=== PATIENT | female | born 1985 | race Caucasian/White ===

== ENCOUNTER 2018-11-22 20:45 | Emergency (ER) | payer SELFPAY ==
--- OUTSIDE RECORDS SUMMARY | 2018-11-22 20:48 | XMS REPORT ---
:1985 [facility] [address] [place] [id number] Care Team Providers Name Role Phone Unavailable Unavailable Unavailable Problems This patient has no known problems. Allergies, Adverse Reactions, Alerts This patient has no known allergies or adverse reactions. Medications This patient has no known medications.
[2018-11-22] MEDS ORDERED: NA CHLORIDE 0.9% 1,000 ML ONE (22:54)
[2018-11-22] MEDS ORDERED: ONDANSETRON 4 MG/2 ML VIAL ONE (22:54)
[2018-11-22] MEDS ORDERED: MORPHINE 4 MG/ML SYR ONE (22:54)
[2018-11-22 23:21] LABS: Absolute Lymphocytes (CBC) 2.2 K/uL (0.7-4.9); Absolute Monocytes 0.4 K/uL (0.1-1.3); Absolute Neutrophil 2.5 K/uL (1.8-8.0); Basophils % 0.9 % (0-1.3); Eosinophils % 3.8 % (0-4.4); Hematocrit 33.5 % (36.0-45.0); Lymphocytes % 40.4 % (15.3-44.8); MPV 9.8 fL (7.6-11.3); Monocytes % 7.2 % (3.3-12.3); RBC Red Blood Cell Count 3.83 M/uL (3.86-4.86)
[2018-11-22 23:35] LABS: Urine Blood NEGATIVE (NEG); Urine Glucose NEGATIVE (NEG); Urine Protein 2+ (NEG); Urine Specific Gravity 1.015 (1.005-1.030); Urine pH >8.5 (5.0-7.0)
[2018-11-22 23:41] LABS: ALT/SGPT 15 U/L (12-78); AST/SGOT 13 U/L (15-37); Albumin 3.4 g/dL (3.4-5.0); Alkaline Phosphatase 57 U/L (45-117); BUN Blood Urea Nitrogen 8 mg/dL (7-18); Bicarbonate 28 mmol/L (21-32); Bilirubin Direct < 0.1 mg/dL (0-0.2); Bilirubin Total 0.1 mg/dL (0.2-1.0); Glucose Level 85 mg/dL (74-106); Lipase 127 U/L (73-393); Potassium 3.2 mmol/L (3.5-5.1); Protein, Total 6.7 g/dL (6.4-8.2); Sodium Level 144 mmol/L (136-145)
[2018-11-23 00:38] LABS: Urine Culture Reflex Order NOT NEEDED
[2018-11-23 00:39] LABS: Urine Bacteria LOADED /HPF (<20); Urine RBC NONE SEEN /HPF (NONE SEEN)
--- NOTE | 2018-11-23 01:35 | EDPHYS ---
Physician Documentation [facility] Name: Mikayla Torrez Age: 33 yrs Sex: Female : 1985 Arrival Date: 11/22/2018 Time: 20:48 Bed 30 Private MD: ED Physician Too Barrett HPI: 11/22 22:24 This 33 yrs old Female presents to ER via Wheelchair with complaints of High pkl Blood Sugar. 22:24 The patient presents with abdominal pain in the lower abdomen. Onset: The pkl symptoms/episode began/occurred today. The symptoms do not radiate. Associated signs and symptoms: none. 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 - Social history:: Smoking status: Patient uses tobacco products, smokes one pack cigarettes per day. - Ebola Screening: : No symptoms or risks identified at this time. ROS: 22:24 Eyes: Negative for injury, pain, redness, and discharge, ENT: Negative for injury, pkl pain, and discharge, Neck: Negative for injury, pain, and swelling, Cardiovascular: Negative for chest pain, palpitations, and edema, Respiratory: Negative for shortness of breath, cough, wheezing, and pleuritic chest pain. 22:24 Abdomen/GI: Positive for abdominal pain, of the right lower quadrant and left lower quadrant. 22:24 Back: Negative for acute changes. 22:24 : Negative for urinary symptoms. 22:24 MS/extremity: Negative for acute changes. 22:24 Skin: Negative for rash. 22:24 Neuro: Negative for altered mental status. Exam: 22:24 Head/Face: Normocephalic, atraumatic. Eyes: Pupils equal round and reactive to light, pkl extra-ocular motions intact. Lids and lashes normal. Conjunctiva and sclera are non-icteric and not injected. Cornea within normal limits. Periorbital areas with no swelling, redness, or edema. ENT: Nares patent. No nasal discharge, no septal abnormalities noted. Tympanic membranes are normal and external auditory canals are clear. Oropharynx with no redness, swelling, or masses, exudates, or evidence of obstruction, uvula midline. Mucous membranes moist. Neck: Trachea midline, no thyromegaly or masses palpated, and no cervical lymphadenopathy. Supple, full range of motion without nuchal rigidity, or vertebral point tenderness. No Meningismus. Chest/axilla: Normal chest wall appearance and motion. Nontender with no deformity. No lesions are appreciated. Cardiovascular: Regular rate and rhythm with a normal S1 and S2. No gallops, murmurs, or rubs. Normal PMI, no JVD. No pulse deficits. Respiratory: Lungs have equal breath sounds bilaterally, clear to auscultation and percussion. No rales, rhonchi or wheezes noted. No increased work of breathing, no retractions or nasal flaring. 22:24 Abdomen/GI: Bowel sounds: normal, Palpation: soft, mild abdominal tenderness, in the right lower quadrant and left lower quadrant. 22:24 Back: Exam negative for acute changes. 22:24 : Exam negative for acute changes. 22:24 Musculoskeletal/extremity: Exam is negative for acute changes. 22:24 Skin: Exam negative for rash. 22:24 Neuro: Orientation: is normal, Mentation: is normal, Cranial nerves: grossly normal, Motor: is normal. Vital Signs: 21:08 BP 117 / 77; Pulse 90; Resp 18; Temp 99.1(O); Pulse Ox 99% on R/A; Weight 83.91 kg; lp1 Height 5 ft. 3 in. (160.02 cm); Pain 10/10; 22:00 BP 110 / 75; Pulse 78; Resp 17 S; Pulse Ox 97% on R/A; ca1 23:02 BP 105 / 64; Pulse 75; Resp 17 S; Pulse Ox 97% on R/A; ca1 04/16 00:15 BP 109 / 61; Pulse 74; Resp 19 S; Pulse Ox 98% on R/A; ca1 00:43 BP 106 / 63; Pulse 73; Resp 18 S; Pulse Ox 96% on R/A; ca1 01:00 BP 91 / 60 LA Supine; Pulse 74; Resp 15 S; Pulse Ox 99% on R/A; rv 01:27 BP 93 / 65 LA Supine; Pulse 78; Resp 17 S; Pulse Ox 100% on R/A; rv 11/22 21:08 Body Mass Index 32.77 (83.91 kg, 160.02 cm) lp1 MDM: 11/22 22:17 Patient medically screened. pkl 11/23 01:30 Data reviewed: vital signs, nurses notes, lab test result(s), radiologic studies, CT pkl scan. 11/22 22:23 Order name: Basic Metabolic Panel; Complete Time: : pkl 11/22 22:23 Order name: CBC with Diff; Complete Time: : pkl 11/22 22:23 Order name: Creatinine for Radiology; Complete Time: : pkl 11/22 22:23 Order name: Hepatic Function; Complete Time: : pkl 11/22 22:23 Order name: Lipase; Complete Time: : pkl 11/22 22:31 Order name: Urine Dipstick--Ancillary (enter results); Complete Time: 01: ms 11/22 22:23 Order name: CT Abd/Pelvis - W/Contrast pkl 11/22 22:31 Order name: Urine --Ancillary (enter results); Complete Time: 01: ms 11/22 22:46 Order name: Urine Microscopic Only; Complete Time: : ms 11/22 22:46 Order name: Urine Culture ms 11/22 22:23 Order name: IV Saline Lock; Complete Time: 22:46 pkl 11/22 22:23 Order name: Labs collected and sent; Complete Time: 22:46 pkl Administered Medications: 11/22 22:40 Drug: NS 0.9% 1000 ml Route: IV; Rate: 125 ml/hr; Site: right antecubital; ca1 11/23 01:49 Follow up: IV Status: Completed infusion rv 11/22 22:40 Drug: morphine 4 mg Route: IVP; Site: right antecubital; ca1 23:31 Follow up: Response: No adverse reaction; Pain is unchanged, physician notified ca1 22:45 Drug: Zofran 4 mg Route: IVP; Site: right antecubital; ca1 23:31 Follow up: Response: No adverse reaction; Nausea is decreased ca1 11/23 01:49 Drug: Cipro 500 mg Route: PO; rv 01:49 Follow up: Response: Medication administered at discharge. rv 01:49 Drug: K-Dur 40 mEq Route: PO; rv 01:49 Follow up: Response: Medication administered at discharge. Point of Care Testing: Blood Glucose: 11/22 20:49 Blood Glucose: 84 mg/dL; lp1 Ranges: Critical Glucose Levels:Adult <50 mg/dl or >400 mg/dl <40 mg/dl or >180 mg/dl Disposition: 11/23/18 01:34 Discharged to Home. Impression: Abdominal pain. Urinary tract infection. - Condition is Stable. - Prescriptions for Ultram 50 mg Oral Tablet - take 1 tablet by ORAL route every 8 hours As needed; 20 tablet. Cipro 500 mg Oral Tablet - take 1 tablet by ORAL route every 12 hours for 7 days; 14 tablet. - Medication Reconciliation Form, Thank You Letter, Antibiotic Education, Prescription Opioid Use form. - Follow up: Private Physician; When: 2 - 3 days; Reason: Re-evaluation by your physician. - Problem is new. - Symptoms have improved. Signatures: Dispatcher [employer] EDMS Too Barrett MD MD pkl Kate Kaye RN RN lp1 Jasbir Javier, RN RN rv Acob, Alma, RN RN ca1 Corrections: (The following items were deleted from the chart) 11/23 01:50 01:34 11/23/2018 01:34 Discharged to Home. Impression: Abdominal pain. Urinary tract rv infection. Condition is Stable. Forms are Medication Reconciliation Form, Thank You Letter, Antibiotic Education, Prescription Opioid Use. Follow up: Private Physician; When: 2 - 3 days; Reason: Re-evaluation by your physician. Problem is new. Symptoms have improved. pkl
--- NOTE | 2018-11-23 01:35 | ER ---
[facility] Name: Mikayla Torrez Age: 33 yrs Sex: Female : 1985 Arrival Date: 11/22/2018 Time: 20:48 Bed 30 Private MD: Diagnosis: Abdominal pain. Urinary tract infection Presentation: 11/22 21:06 Presenting complaint: Patient states: "I'm having a lot of abdominal pain"; Complaint lp1 of shaking, felt like blood sugar was low; Denies any pain with urination, vomiting, diarrhea, fever. Transition of care: patient was not received from another setting of care. Onset of symptoms was November 22, 2018. Risk Assessment: Do you want to hurt yourself or someone else? Patient reports no desire to harm self or others. Initial Sepsis Screen: Does the patient meet any 2 criteria? No. Patient's initial sepsis screen is negative. Does the patient have a suspected source of infection? No. Patient's initial sepsis screen is negative. Care prior to arrival: None. 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 - Social history:: Smoking status: Patient uses tobacco products, smokes one pack cigarettes per day. - Ebola Screening: : No symptoms or risks identified at this time. Screenin:09 Abuse screen: Denies threats or abuse. Denies injuries from another. Nutritional lp1 screening: No deficits noted. Tuberculosis screening: No symptoms or risk factors identified. 22:00 Fall Risk None identified. ca1 Assessment: 22:00 General: Appears in no apparent distress. comfortable, Behavior is calm, cooperative, ca1 appropriate for age. Pain: Complains of pain in abdomen Pain currently is 10 out of 10 on a pain scale. Pain began 1 hour ago. Neuro: Level of Consciousness is awake, alert, obeys commands, Oriented to person, place, time, situation. Cardiovascular: Heart tones S1 S2 present Capillary refill < 3 seconds Patient's skin is warm and dry. Respiratory: Airway is patent Respiratory effort is even, unlabored, Respiratory pattern is regular, symmetrical, Breath sounds are clear bilaterally. GI: Abdomen is flat, non-distended, Bowel sounds present X 4 quads. Abd is soft X 4 quads Abdomen is tender to palpation in right lower quadrant and left lower quadrant. : No deficits noted. No signs and/or symptoms were reported regarding the genitourinary system. EENT: No deficits noted. No signs and/or symptoms were reported regarding the EENT system. Derm: Skin is intact, is healthy with good turgor, Skin is pink, warm \\T\\ dry. Musculoskeletal: Circulation, motion, and sensation intact. Capillary refill < 3 seconds. 23:02 Reassessment: Patient appears in no apparent distress at this time. Patient and/or ca1 family updated on plan of care and expected duration. Pain level reassessed. Patient is alert, oriented x 3, equal unlabored respirations, skin warm/dry/pink. 11/23 00:15 Reassessment: Patient appears in no apparent distress at this time. Patient and/or ca1 family updated on plan of care and expected duration. Pain level reassessed. Patient is alert, oriented x 3, equal unlabored respirations, skin warm/dry/pink. 00:15 Reassessment: Pt to CT scan. ca1 00:43 Reassessment: Patient appears in no apparent distress at this time. Patient is alert, ca1 oriented x 3, equal unlabored respirations, skin warm/dry/pink. PT back from CT scan. 01:28 Reassessment: Patient appears in no apparent distress at this time. Patient and/or rv family updated on plan of care and expected duration. Pain level reassessed. Patient is alert, oriented x 3, equal unlabored respirations, skin warm/dry/pink. patient is still complaining of abdominal pain. Vital Signs: 11/22 21:08 BP 117 / 77; Pulse 90; Resp 18; Temp 99.1(O); Pulse Ox 99% on R/A; Weight 83.91 kg; lp1 Height 5 ft. 3 in. (160.02 cm); Pain 10/10; 22:00 BP 110 / 75; Pulse 78; Resp 17 S; Pulse Ox 97% on R/A; ca1 23:02 BP 105 / 64; Pulse 75; Resp 17 S; Pulse Ox 97% on R/A; ca1 11/23 00:15 BP 109 / 61; Pulse 74; Resp 19 S; Pulse Ox 98% on R/A; ca1 00:43 BP 106 / 63; Pulse 73; Resp 18 S; Pulse Ox 96% on R/A; ca1 01:00 BP 91 / 60 LA Supine; Pulse 74; Resp 15 S; Pulse Ox 99% on R/A; rv 01:27 BP 93 / 65 LA Supine; Pulse 78; Resp 17 S; Pulse Ox 100% on R/A; rv 04 21:08 Body Mass Index 32.77 (83.91 kg, 160.02 cm) lp1 ED Course: 11/22 20:48 Patient arrived in ED. ds1 21:08 Triage completed. lp1 21:08 Arm band placed on right wrist. lp1 22:00 Patient has correct armband on for positive identification. Placed in gown. Bed in low ca1 position. Call light in reach. Side rails up X 1. Pulse ox on. NIBP on. Warm blanket given. 22:01 Alma Kirkland, RN is Primary Nurse. ca1 22:17 Too Barrett MD is Attending Physician. pkl 22:46 Initial lab(s) drawn, by me, sent to lab. Inserted saline lock: 22 gauge in right lt1 antecubital area, using aseptic technique. 22:59 Radiology exam delayed due to lab results not completed at this time. (BUN/Creatinine). vm2 11/23 00:46 CT Abd/Pelvis - W/Contrast In Process Unspecified. EDMS 01:29 No provider procedures requiring assistance completed. IV discontinued, intact, rv bleeding controlled, No redness/swelling at site. Pressure dressing applied. Administered Medications: 11/22 22:40 Drug: NS 0.9% 1000 ml Route: IV; Rate: 125 ml/hr; Site: right antecubital; ca1 11/23 01:49 Follow up: IV Status: Completed infusion rv 11/22 22:40 Drug: morphine 4 mg Route: IVP; Site: right antecubital; ca1 23:31 Follow up: Response: No adverse reaction; Pain is unchanged, physician notified ca1 22:45 Drug: Zofran 4 mg Route: IVP; Site: right antecubital; ca1 23:31 Follow up: Response: No adverse reaction; Nausea is decreased ca1 11/23 01:49 Drug: Cipro 500 mg Route: PO; rv 01:49 Follow up: Response: Medication administered at discharge. rv 01:49 Drug: K-Dur 40 mEq Route: PO; rv 01:49 Follow up: Response: Medication administered at discharge. rv Point of Care Testing: Blood Glucose: 11/22 20:49 Blood Glucose: 84 mg/dL; lp1 Ranges: Outcome: 11/23 01:29 Condition: good rv 01:34 Discharge ordered by . pkl 01:49 Discharged to home ambulatory. rv 01:49 Discharge instructions given to patient, family, Instructed on discharge instructions, follow up and referral plans. medication usage, Demonstrated understanding of instructions, follow-up care, medications, Prescriptions given X 2. 01:50 Patient left the ED. rv Signatures: Dispatcher [employer] EDMS Too Barrett MD MD pkNatasha Sotomayor ds1 Kate Kaye RN RN lp1 Brandie Flores 2 Jasbir Javier RN RN rv Alma Kirkland RN RN Janae Wilkerson [facility]
[2018-11-23] MEDS ORDERED: CIPROFLOXACIN HCL 500 MG TAB ONE (01:49)
[2018-11-23] MEDS ORDERED: POTASSIUM CL SA 10 MEQ TAB PO ONE (01:49)
--- NOTE | 2018-11-23 11:13 | RAD REPORT ---
EXAM DESCRIPTION: CT - Abdomen Pelvis W Contrast - 11/23/2018 1:08 am CLINICAL HISTORY: The patient is 33 years old and is Female; ABD PAIN TECHNIQUE: Axial computed tomography images of the abdomen and pelvis with intravenous contrast. S agittal and coronal reformatted images were created and reviewed. This CT exam was performed using one or more of the following dose reduction techniques: automated exposure control, adjustment of t he mA and/or kV according to patient size, and/or use of iterative reconstruction technique. COMPARISON: None. FINDINGS: LUNG BASES: Bibasilar atelectasis. No focal consolidation, pleural effusion or pneumoth orax. ABDOMEN: LIVER: Unremarkable. No mass. GALLBLADDER AND BILE DUCTS: Unremarkable. No calcified stones. No ductal dilation. PANCREAS: Unremarkable. No mass. No ductal dilation. SPLEEN: Unremarkable. No splenomegaly. ADRENALS: Unremarkable. No mass. KIDNEYS AND URETERS: Prominence of the renal collecting systems bilaterally, left greater than rig ht. No hydronephrosis or hydroureter. STOMACH AND BOWEL: Unremarkable. No obstruction. No mucosal thickening. PELVIS: APPENDIX: No findings to suggest acute appendicitis. BLADDER: Unremarkable. No mass. REPRODUCTIVE: Heterogenous enlargement of the uterus with small amount of endometrial fluid and mu ltiple rim-enhancing right ovarian cyst measuring 1.6 cm suggestive of a corpus luteal cyst. ABDOMEN and PELVIS: INTRAPERITONEAL SPACE: Small amount of free pelvic fluid. No free air. BONES/JOINTS: No acute fracture. No dislocation. SOFT TISSUES: Fat-containing umbilical hernia. VASCULATURE: Unremarkable. No abdominal aortic aneurysm. LYMPH NODES: Unremarkable. No enlarged lymph nodes. IMPRESSION: 1. No acute abdominal abnormality. 2. Heterogenous enlargement of the uterus with small amount of endometrial fluid in multiple 1.6 cm corpus luteal cysts on the right. No follow-up imaging is recommended. Reference: US recommendations based on Radiology 2010 Sep;256(3):943-54; CT/MR recommendations based on J Am Christopher Radiol 2013;10:675-681. 3. Prominence of the bilateral renal collecting systems without hydroureter or radiopaque stone. 4. Bibasilar atelectasis. Electronically signed by: Gilbert Radford DO 11/23/2018 1:00 AM CDT Due to temporary technical issues with the PACS/Fluency reporting system, reports are being signed by the in house radiologist as a courtesy to ensure prompt reporting. The interpreting radiologist is f ully responsible for the content of the report.
== END 2018-11-23 01:50 | disposition home or self-care (01) ==
LOC: ER 20:45
DX: N39.0 Urinary tract infection, site not specified (principal); F17.210 Nicotine dependence, cigarettes, uncomplicated; Z88.0 Allergy status to penicillin
CPT/HCPCS: 36415; 74177; 80048; 80076; 81003; 81015; 81025; 82962; 83690; 85025; 87086; 87088; 96361; 96374; 96375; 99284; J2405; J7030; Q9967

== ENCOUNTER 2018-12-12 23:10 | Emergency (ER) | payer SELFPAY ==
--- OUTSIDE RECORDS SUMMARY | 2018-12-12 23:13 | XMS REPORT ---
:1985 [facility] Address [address] [place] [address] [address] [place] [address] Care Team Providers Name Role Phone Unavailable Unavailable Unavailable Problems This patient has no known problems. Allergies, Adverse Reactions, Alerts This patient has no known allergies or adverse reactions. Medications This patient has no known medications.
[2018-12-13 00:12] LABS: Absolute Lymphocytes (CBC) 2.9 K/uL (0.7-4.9); Absolute Monocytes 0.6 K/uL (0.1-1.3); Absolute Neutrophil 6.7 K/uL (1.8-8.0); Basophils % 1.1 % (0-1.3); Eosinophils % 2.2 % (0-4.4); Hematocrit 33.3 % (36.0-45.0); Lymphocytes % 27.8 % (15.3-44.8); MPV 8.6 fL (7.6-11.3); Monocytes % 5.8 % (3.3-12.3); RBC Red Blood Cell Count 3.79 M/uL (3.86-4.86)
[2018-12-13 00:19] LABS: Urine Blood NEGATIVE (NEG); Urine Glucose NEGATIVE (NEG); Urine Protein NEGATIVE (NEG); Urine Specific Gravity 1.015 (1.005-1.030); Urine pH 5.5 (5.0-7.0)
[2018-12-13 00:40] LABS: BUN Blood Urea Nitrogen 7 mg/dL (7-18); Bicarbonate 24 mmol/L (21-32); Glucose Level 91 mg/dL (74-106); Potassium 3.4 mmol/L (3.5-5.1); Sodium Level 139 mmol/L (136-145)
[2018-12-13] MEDS ORDERED: ACETAMINOPHEN 325 MG TABLET ONE (01:02)
[2018-12-13 01:21] LABS: HCG, Quantitative 15025 mIU/mL (1-3)
[2018-12-13 01:36] LABS: Urine Specific Gravity 1.015 (1.005-1.030)
[2018-12-13 01:37] LABS: Urine Bacteria <20 /HPF (<20); Urine Culture Reflex Order NOT NEEDED; Urine RBC <5 /HPF (NONE SEEN)
--- NOTE | 2018-12-13 03:02 | EDPHYS ---
Physician Documentation [facility] Name: Mikayla Torrez Age: 33 yrs Sex: Female : 1985 Arrival Date: 12/12/2018 Time: 23:13 Bed 4 Private MD: ED Physician Leon Hannon HPI: 12/13 01:57 This 33 yrs old Female presents to ER via Ambulatory with complaints of Pain pm1 With Urination, Back Pain, Blood in urine. 01:57 The patient presents with flank pain, on the right, urinary symptoms, hematuria, pm1 burning. Onset: The symptoms/episode began/occurred yesterday. Modifying factors: The symptoms are alleviated by nothing, the symptoms are aggravated by urinating. Associated signs and symptoms: Pertinent negatives: diarrhea, fever, vomiting. Severity of symptoms: in the emergency department the symptoms are unchanged. The patient is sexually active. The patient's method of control includes nothing. The patient has been recently seen at the [facility] Emergency Department, 3 weeks ago for abdominal pain and diagnosed with UTI. Symptoms resolved with antibiotics. 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 - Social history:: Smoking status: Patient uses tobacco products, denies chronic smoking, but will smoke occasionally. - Ebola Screening: : No symptoms or risks identified at this time. ROS: 12/13 01:50 Positive for flank pain, hematuria, burning with urination, Negative for vaginal pm1 bleeding, vaginal discharge. Constitutional: Negative for fever, chills, and weight loss, Eyes: Negative for injury, pain, redness, and discharge, ENT: Negative for injury, pain, and discharge, Neck: Negative for injury, pain, and swelling, Cardiovascular: Negative for chest pain, palpitations, and edema, Respiratory: Negative for shortness of breath, cough, wheezing, and pleuritic chest pain, Abdomen/GI: Negative for abdominal pain, nausea, vomiting, diarrhea, and constipation. MS/Extremity: Negative for injury and deformity, Skin: Negative for injury, rash, and discoloration, Neuro: Negative for headache, weakness, numbness, tingling, and seizure. Back: Positive for flank pain, on the right. Exam: 01:50 Constitutional: This is a well developed, well nourished patient who is awake, alert, pm1 and in no acute distress. Head/Face: Normocephalic, atraumatic. Eyes: Pupils equal round and reactive to light, extra-ocular motions intact. Lids and lashes normal. Conjunctiva and sclera are non-icteric and not injected. Cornea within normal limits. Periorbital areas with no swelling, redness, or edema. ENT: Nares patent. No nasal discharge, no septal abnormalities noted. Tympanic membranes are normal and external auditory canals are clear. Oropharynx with no redness, swelling, or masses, exudates, or evidence of obstruction, uvula midline. Mucous membranes moist. Neck: Trachea midline, no thyromegaly or masses palpated, and no cervical lymphadenopathy. Supple, full range of motion without nuchal rigidity, or vertebral point tenderness. No Meningismus. Chest/axilla: Normal chest wall appearance and motion. Nontender with no deformity. No lesions are appreciated. Cardiovascular: Regular rate and rhythm with a normal S1 and S2. No gallops, murmurs, or rubs. Normal PMI, no JVD. No pulse deficits. Respiratory: Lungs have equal breath sounds bilaterally, clear to auscultation and percussion. No rales, rhonchi or wheezes noted. No increased work of breathing, no retractions or nasal flaring. Abdomen/GI: Soft, non-tender, with normal bowel sounds. No distension or tympany. No guarding or rebound. No evidence of tenderness throughout. 01:50 Skin: Warm, dry with normal turgor. Normal color with no rashes, no lesions, and no evidence of cellulitis. MS/ Extremity: Pulses equal, no cyanosis. Neurovascular intact. Full, normal range of motion. 01:50 Back: pain, that is moderate, of the right low back, normal spinal alignment noted. 01:50 Neuro: Orientation: is normal, Motor: is normal, moves all fours, Sensation: is normal, no obvious gross deficits. Vital Signs: 12/12 23:26 BP 105 / 72; Pulse 87; Resp 16 S; Temp 98.7(O); Pulse Ox 99% on R/A; Weight 83.91 kg bb (R); Height 5 ft. 3 in. (160.02 cm) (R); Pain 8/10; 12/13 03:24 BP 98 / 56; Pulse 76; Resp 16; Temp 98.5; Pulse Ox 99% on R/A; ak1 12/12 23:26 Body Mass Index 32.77 (83.91 kg, 160.02 cm) bb MDM: 12/12 23:33 Patient medically screened. pm1 12/13 02:55 ED course: 6 weeks 2 days IUP . pm1 02:59 Data reviewed: vital signs. Data interpreted: Pulse oximetry: on room air is 99 %. pm1 Interpretation: normal. Counseling: I had a detailed discussion with the patient and/or guardian regarding: the historical points, exam findings, and any diagnostic results supporting the discharge/admit diagnosis, lab results, radiology results, the need for outpatient follow up, to return to the emergency department if symptoms worsen or persist or if there are any questions or concerns that arise at home. 02:59 ED course: Patient's urine dip and urine micro negative for WBC, RBC, and bacteria. pm1 Patient does not have UTI or pyelonephritis. No need for antibiotics. Patient's right kidney without any hydronephrosis - no obstructing calculous. 6w2d IUP. 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 12/12 23:50 Order name: Quantitative Hcg 1 12/12 23:50 Order name: Abo/rh Typing [facility] 12/12 23:50 Order name: Basic Metabolic Panel [facility] 12/12 23:50 Order name: CBC with Diff [facility] 12/12 23:50 Order name: Urine Dipstick--Ancillary (enter results) [facility] 12/12 23:50 Order name: Urine --Ancillary (enter results) [facility] 12/13 00:15 Order name: CBC with Automated Diff; Complete Time: 00:23 EDIA 12/13 00:19 Order name: Urine --Ancillary; Complete Time: 00:23 EDMS 12/13 00:19 Order name: Urine Dipstick-Ancillary; Complete Time: 00:39 EDMS 12/13 00:25 Order name: Test, Serum pm12/13 00:31 Order name: ABO/RH typing; Complete Time: 00:39 EDMS 12/13 00:32 Order name: Test Serum, Qualitat; Complete Time: 00:39 EDMS 12/13 00:39 Order name: Urine Microscopic Only pm12/13 00:40 Order name: Basic Metabolic Panel; Complete Time: 01:29 EDMS 12/12 23:47 Order name: Urine Dipstick-Ancillary (obtain specimen); Complete Time: 23:50 pm1 12/12 23:47 Order name: Urine Test (obtain specimen); Complete Time: 23:50 pm1 12/12 23:50 Order name: IV Saline Lock; Complete Time: 00:09 pm12/12 23:50 Order name: Labs collected and sent; Complete Time: 00:09 pm1 12/13 00:41 Order name: Urine --Ancillary (enter results) 2 12/13 01:21 Order name: HCG, Quantitative; Complete Time: 01:29 EDMS 12/13 01:32 Order name: US Transvaginal Ob pm1 12/13 01:36 Order name: Urine --Ancillary; Complete Time: 01:52 EDMS 12/13 01:38 Order name: Urine Microscopic Only; Complete Time: 01:52 EDMS Administered Medications: 00:52 Drug: Tylenol 650 mg Route: PO; ak1 01:25 Follow up: Response: No adverse reaction ak1 Disposition: 04:08 Co-signature as Attending Physician, Leon Hannon MD. rn Disposition: 12/13/18 03:02 Discharged to Home. Impression: Low back pain. - Condition is Stable. - Discharge Instructions: Back Pain in . - Work release form, Medication Reconciliation Form, Thank You Letter, Antibiotic Education, Prescription Opioid Use form. - Follow up: Emergency Department; When: As needed; Reason: Worsening of condition. Follow up: Private Physician; When: 2 - 3 days; Reason: Recheck today's complaints, Continuance of care, Re-evaluation by your physician. - Problem is new. - Symptoms have improved. Signatures: Dispatcher [employer] Vernell Zimmerman RN RN Leon Oconnor MD MD rn Krenek, Amber, RN RN ak1 Abraham Moralez, AIRPORT MAINTENANCE CHIEF AIRPORT MAINTENANCE CHIEF pm1 Corrections: (The following items were deleted from the chart) 03:24 03:02 12/13/2018 03:02 Discharged to Home. Impression: Low back pain. Condition is ak1 Stable. Forms are Medication Reconciliation Form, Thank You Letter, Antibiotic Education, Prescription Opioid Use. Follow up: Emergency Department; When: As needed; Reason: Worsening of condition. Follow up: Private Physician; When: 2 - 3 days; Reason: Recheck today's complaints, Continuance of care, Re-evaluation by your physician. Problem is new. Symptoms have improved. pm1
--- NOTE | 2018-12-13 03:02 | ER ---
Nurse's Notes [facility] Name: Mikayla Torrez Age: 33 yrs Sex: Female : 1985 Arrival Date: 12/12/2018 Time: 23:13 Bed 4 Private MD: Diagnosis: Low back pain Presentation: 12/12 23:24 Presenting complaint: Patient states: she is 6 to 8 weeks and started having bb back pain, pain with urination and a little blood in urine since yesterday. Transition of care: patient was not received from another setting of care. Onset of symptoms was December 11, 2018. Risk Assessment: Do you want to hurt yourself or someone else? Patient reports no desire to harm self or others. Initial Sepsis Screen: Does the patient meet any 2 criteria? No. Patient's initial sepsis screen is negative. Does the patient have a suspected source of infection? No. Patient's initial sepsis screen is negative. Care prior to arrival: None. 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 - Social history:: Smoking status: Patient uses tobacco products, denies chronic smoking, but will smoke occasionally. - Ebola Screening: : No symptoms or risks identified at this time. Screenin:48 Abuse screen: Denies threats or abuse. Denies injuries from another. Nutritional ak1 screening: No deficits noted. Tuberculosis screening: No symptoms or risk factors identified. Fall Risk None identified. Assessment: 23:48 General: Appears in no apparent distress. Behavior is calm, cooperative. Pain: ak1 Complains of pain in right mid back. Neuro: Level of Consciousness is awake, alert, obeys commands, Oriented to person, place, time, situation, Drapery Rod Assembler are equal bilaterally Moves all extremities. Gait is steady, Speech is normal, Facial symmetry appears normal, Pupils are PERRLA. Cardiovascular: No deficits noted. Respiratory: No deficits noted. GI: No signs and/or symptoms were reported involving the gastrointestinal system. : Reports pain in right flank(s). EENT: No signs and/or symptoms were reported regarding the EENT system. Derm: No signs and/or symptoms reported regarding the dermatologic system. Musculoskeletal: No signs and/or symptoms reported regarding the musculoskeletal system. 12/13 01:20 Reassessment: Patient appears in no apparent distress at this time. No changes from ak1 previously documented assessment. Patient and/or family updated on plan of care and expected duration. Pain level reassessed. Patient is alert, oriented x 3, equal unlabored respirations, skin warm/dry/pink. 02:18 Reassessment: Patient appears in no apparent distress at this time. Patient and/or ak1 family updated on plan of care and expected duration. Pain level reassessed. Patient is alert, oriented x 3, equal unlabored respirations, skin warm/dry/pink. pt informed of wait for US. 03:24 Reassessment: Patient appears in no apparent distress at this time. No changes from ak1 previously documented assessment. Patient and/or family updated on plan of care and expected duration. Pain level reassessed. Patient is alert, oriented x 3, equal unlabored respirations, skin warm/dry/pink. Patient states feeling better. Patient states symptoms have improved. Vital Signs: 12/12 23:26 BP 105 / 72; Pulse 87; Resp 16 S; Temp 98.7(O); Pulse Ox 99% on R/A; Weight 83.91 kg bb (R); Height 5 ft. 3 in. (160.02 cm) (R); Pain 8/10; 12/13 03:24 BP 98 / 56; Pulse 76; Resp 16; Temp 98.5; Pulse Ox 99% on R/A; ak1 12/12 23:26 Body Mass Index 32.77 (83.91 kg, 160.02 cm) bb ED Course: 12/12 23:13 Patient arrived in ED. es 23:25 Triage completed. bb 23:26 Arm band placed on Patient placed in an exam room, on a stretcher, on pulse oximetry. bb 23:29 Abraham Moralez NP is PHCP. pm1 23:29 Leon Hannon MD is Attending Physician. pm1 23:48 Tiffany Almonte, RN is Primary Nurse. ak1 23:48 Patient has correct armband on for positive identification. Bed in low position. Call ak1 light in reach. Side rails up X 1. Pulse ox on. NIBP on. 05/06 00:10 Initial lab(s) drawn, by me, sent to lab. Urine collected: clean catch specimen, clear. ak1 Inserted saline lock: 22 gauge in right antecubital area, using aseptic technique. Blood collected. 03:13 No provider procedures requiring assistance completed. IV discontinued, intact, ak1 bleeding controlled, No redness/swelling at site. Pressure dressing applied. 06:43 US Transvaginal Ob In Process Unspecified. EDMS Administered Medications: 00:52 Drug: Tylenol 650 mg Route: PO; ak1 01:25 Follow up: Response: No adverse reaction ak1 Outcome: 03:02 Discharge ordered by MD. pm1 03:14 Discharged to home ambulatory. ak1 03:14 Condition: good 03:14 Discharge instructions given to patient, Instructed on discharge instructions, follow up and referral plans. Demonstrated understanding of instructions, follow-up care. 03:24 Patient left the ED. ak1 Signatures: Dispatcher [employer] EDMS Barbara Mccarty Brenda, RN RN bb Tiffany Almonte RN RN ak1 Abraham Moralez, [employer] SYSTEMS ENGINEER pm1 Corrections: (The following items were deleted from the chart) 02:18 01:20 Reassessment: Patient appears in no apparent distress at this time. Patient ak1 and/or family updated on plan of care and expected duration. Pain level reassessed. Patient is alert, oriented x 3, equal unlabored respirations, skin warm/dry/pink. pt informed of wait for US. ak1
--- NOTE | 2018-12-13 08:24 | RAD REPORT ---
EXAM DESCRIPTION: US - Transvaginal OB - 12/13/2018 2:55 am CLINICAL HISTORY: right flank pain, hematuria;Abd pain COMPARISON: No comparisons FINDINGS: A single gestational sac is seen within the uterus. The shape of the sac is within normal limits for gestational age. Within the sac is a single pole with crown-rump length of 6 mm, cor relating to estimated gestational age of 6 weeks 2 days. Estimated date of delivery is 08/07/2019. Heart rate is 107 BPM. The placenta is not yet developed due to early gestational age. Mild subchorionic bleed is present al ashanti the margin of the sac. The maternal adnexa and ovaries are within normal limits. Normal Doppler blood flow was demonstrated to both ovaries. IMPRESSION: Single live early intrauterine gestation with estimated gestational age of 6 weeks 2 day s, JOJO 08/07/2018.
== END 2018-12-13 03:24 | disposition home or self-care (01) ==
LOC: ER 23:10
DX: O26.891 Other specified pregnancy related conditions, first trimester (principal); M54.5 Low back pain; R30.0 Dysuria; R31.9 Hematuria, unspecified; O24.911 Unspecified diabetes mellitus in pregnancy, first trimester; O99.331 Smoking (tobacco) complicating pregnancy, first trimester; Z3A.01 Less than 8 weeks gestation of pregnancy; Z88.0 Allergy status to penicillin
CPT/HCPCS: 36415; 76817; 80048; 81003; 81015; 81025; 84702; 84703; 85025; 86900; 86901; 99284

== ENCOUNTER 2018-12-29 18:40 | Emergency (ER) | payer OTHER, SELFPAY ==
--- OUTSIDE RECORDS SUMMARY | 2018-12-29 18:42 | XMS REPORT ---
:1985 [facility] Address [address] [place] [address] [address] [place] [address] Care Team Providers Name Role Phone Unavailable Unavailable Unavailable Problems This patient has no known problems. Allergies, Adverse Reactions, Alerts This patient has no known allergies or adverse reactions. Medications This patient has no known medications.
[2018-12-29 19:34] LABS: Urine Blood NEGATIVE (NEG); Urine Glucose NEGATIVE (NEG); Urine Protein NEGATIVE (NEG)
[2018-12-29] MEDS ORDERED: ONDANSETRON 4 MG/2 ML VIAL ONE (19:51)
[2018-12-29] MEDS ORDERED: NA CHLORIDE 0.9% 1,000 ML ONE (19:52)
[2018-12-29 19:59] LABS: Absolute Lymphocytes (CBC) 2.8 K/uL (0.7-4.9); Absolute Monocytes 0.6 K/uL (0.1-1.3); Absolute Neutrophil 7.8 K/uL (1.8-8.0); Eosinophils % 2.1 % (0-4.4); Hematocrit 35.6 % (36.0-45.0); MPV 8.3 fL (7.6-11.3); Monocytes % 5.2 % (3.3-12.3); RBC Red Blood Cell Count 4.05 M/uL (3.86-4.86)
[2018-12-29 20:22] LABS: ALT/SGPT 13 U/L (12-78); AST/SGOT 12 U/L (15-37); Albumin 3.8 g/dL (3.4-5.0); Alkaline Phosphatase 58 U/L (45-117); BUN Blood Urea Nitrogen 9 mg/dL (7-18); Bicarbonate 24 mmol/L (21-32); Bilirubin Direct < 0.1 mg/dL (0-0.2); Bilirubin Total 0.2 mg/dL (0.2-1.0); Glucose Level 97 mg/dL (74-106); Lipase 133 U/L (73-393); Potassium 3.7 mmol/L (3.5-5.1); Protein, Total 7.3 g/dL (6.4-8.2); Sodium Level 140 mmol/L (136-145)
--- NOTE | 2018-12-29 20:50 | EDPHYS ---
Physician Documentation [facility] Name: Mikayla Torrez Age: 33 yrs Sex: Female : 1985 Arrival Date: 12/29/2018 Time: 18:44 Bed 7 Private MD: ED Physician Leon Hannon HPI: 12/29 19:20 This 33 yrs old Female presents to ER via Ambulatory with complaints of 9 wks cp , Dizziness, Abdominal Cramping. 12/30 16:05 The patient presents to the emergency department with abdominal cramps. The estimated cp gestational age is 9 weeks. Associated signs and symptoms: Pertinent positives: dizziness, nausea and vomiting, Pertinent negatives: chest pain, diarrhea, dysuria, fever, ruptured membranes, vaginal bleeding, vaginal discharge. 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 - Social history:: Smoking status: Patient uses tobacco products, smokes one-half pack cigarettes per day. - Ebola Screening: : No symptoms or risks identified at this time. ROS: 19:30 Constitutional: Negative for body aches, chills, fever, poor PO intake. cp 19:30 Eyes: Negative for injury, pain, redness, and discharge. cp 19:30 ENT: Negative for drainage from ear(s), ear pain, sore throat, difficulty swallowing, difficulty handling secretions. 19:30 Cardiovascular: Negative for chest pain. 19:30 Respiratory: Negative for cough, shortness of breath, wheezing. 19:30 Abdomen/GI: Positive for nausea, vomiting, abdominal cramps, Negative for constipation, black/tarry stool, rectal bleeding. 19:30 Back: Negative for pain at rest, pain with movement, radiated pain. 19:30 : Negative for urinary symptoms, vaginal bleeding, vaginal discharge. 19:30 Skin: Negative for rash. 19:30 Neuro: Positive for dizziness, Negative for headache, syncope, weakness. 19:30 All other systems are negative. Exam: 19:35 Constitutional: The patient appears in no acute distress, alert, awake, non-toxic, well cp developed, well nourished. 19:35 Head/Face: Normocephalic, atraumatic. cp 19:35 Eyes: Periorbital structures: appear normal, Conjunctiva: normal, no exudate, no injection, Sclera: no appreciated abnormality, Lids and lashes: appear normal, bilaterally. 19:35 ENT: External ear(s): are unremarkable, Nose: is normal, Mouth: Lips: moist, Oral mucosa: pink and intact, moist, Posterior pharynx: is normal, airway is patent, no erythema, no exudate. 19:35 Chest/axilla: Inspection: normal, Palpation: is normal, no crepitus, no tenderness. 19:35 Cardiovascular: Rate: normal, Rhythm: regular. 19:35 Respiratory: the patient does not display signs of respiratory distress, Respirations: normal, no use of accessory muscles, no retractions, no splinting, no tachypnea, labored breathing, is not present, Breath sounds: are clear throughout, no decreased breath sounds, no stridor, no wheezing. 19:35 Abdomen/GI: Inspection: abdomen appears normal, Bowel sounds: active, all quadrants, Palpation: soft, in all quadrants, mild abdominal tenderness, in the right lower quadrant and left lower quadrant, rebound tenderness, is not appreciated, voluntary guarding, is not appreciated, involuntary guarding, is not appreciated. 19:35 Back: CVA tenderness, is absent. 19:35 Skin: no rash present. 19:35 Neuro: Orientation: to person, place \T\ time. Mentation: is normal, Motor: moves all fours, strength is normal, Gait: is steady. Vital Signs: 18:56 BP 115 / 73; Pulse 83; Resp 16; Temp 98.5; Pulse Ox 100% on R/A; Weight 79.38 kg; hb Height 5 ft. 3 in. (160.02 cm); Pain 6/10; 19:40 BP 108 / 67 Supine; Pulse 79; Resp 16; Pulse Ox 98% on R/A; oe 19:41 BP 106 / 70 Sitting; Pulse 16; Resp 80; Pulse Ox 99% on R/A; oe 19:43 BP 99 / 71 Standing; Pulse 91; Resp 18; Pulse Ox 99% on R/A; oe 21:08 BP 104 / 70; Pulse 79; Resp 16; Temp 98.1; Pulse Ox 99% on R/A; Pain 0/10; ak1 18:56 Body Mass Index 31.00 (79.38 kg, 160.02 cm) hb MDM: 19:07 Patient medically screened. cp 20:47 ED course: US performed 12-12-2018 during ED visit that showed single viable uterine IUP. cp 20:50 Data reviewed: vital signs, nurses notes, lab test result(s), and as a result, I will cp discharge patient. 20:50 Differential diagnosis: dehydration, electrolyte abnormality, UTI. Counseling: I had a cp detailed discussion with the patient and/or guardian regarding: the historical points, exam findings, and any diagnostic results supporting the discharge/admit diagnosis, lab results, the need for outpatient follow up, an OB/Gyne specialist, to return to the emergency department if symptoms worsen or persist or if there are any questions or concerns that arise at home. Response to treatment: the patient's symptoms have markedly improved after treatment, VSS. Symptoms improved with IV fluids and meds. Will discharge to home for continued monitoring. 12/29 19:24 Order name: Urine Dipstick--Ancillary (enter results); Complete Time: 20:44 em1 12/29 19:24 Order name: Urine --Ancillary (enter results); Complete Time: 20:44 em1 12/29 19:32 Order name: Basic Metabolic Panel 12/29 19:32 Order name: CBC with Diff 12/29 19:32 Order name: Creatinine for Radiology; Complete Time: 20:44 cp 12/29 19:32 Order name: Hepatic Function; Complete Time: 20:44 cp 12/29 19:17 Order name: Orthostatics; Complete Time: 20:44 cp 12/29 19:32 Order name: Lipase; Complete Time: 20:44 cp 12/29 19:32 Order name: IV Saline Lock; Complete Time: 20:44 cp 12/29 19:32 Order name: Labs collected and sent; Complete Time: 20:44 cp 12/29 19:33 Order name: Basic Metabolic Panel; Complete Time: 20:44 EDMS 12/29 19:33 Order name: CBC with Automated Diff; Complete Time: 20:44 EDPR 12/29 20:44 Interpretation: Normal except: WBC 11.6; HGB 11.6; HCT 35.6; RDW 16.9. cp 12/29 20:48 Order name: PO challenge; Complete Time: 21:10 cp Administered Medications: 20:07 Drug: NS 0.9% 1000 ml Route: IV; Rate: 1 bolus; Site: right antecubital; ak1 21:10 Follow up: IV Status: Completed infusion ak1 20:07 Drug: Zofran 4 mg Route: IVP; Site: right antecubital; ak1 20:44 Follow up: Response: No adverse reaction ak1 Disposition: 12/29/18 20:50 Discharged to Home. Impression: Nausea, related conditions, unspecified, first trimester. - Condition is Stable. - Discharge Instructions: Abdominal Pain During , Nausea, Adult. - Prescriptions for Diclegis 10- 10 mg Oral tablet,delayed release (DR/EC) - take 1 tablet by ORAL route 3-4 times daily As needed take 1 tablet before each meal and 2 tablets at bedtime; 60 tablet. Vitamin 27- 0.8 mg Oral Tablet - take 1 tablet by ORAL route once daily; 60 tablet. - Work release form, Medication Reconciliation Form, Thank You Letter, Antibiotic Education, Prescription Opioid Use form. - Follow up: Private Physician; When: 1 - 2 days; Reason: Worsening of condition. - Problem is new. - Symptoms have improved. Signatures: Dispatcher [employer] [facility] Tiffany Almonte RN RN ak1 Miles Barajas PA PA cp Jennifer Deutsch RN RN Corrections: (The following items were deleted from the chart) 21:41 20:50 12/29/2018 20:50 Discharged to Home. Impression: Nausea; related ak1 conditions, unspecified, first trimester. Condition is Stable. Forms are Medication Reconciliation Form, Thank You Letter, Antibiotic Education, Prescription Opioid Use. Follow up: Private Physician; When: 1 - 2 days; Reason: Worsening of condition. Problem is new. Symptoms have improved. cp
--- NOTE | 2018-12-29 20:50 | ER ---
Nurse's Notes [facility] Name: Mikayla Torrez Age: 33 yrs Sex: Female : 1985 Arrival Date: 12/29/2018 Time: 18:44 Bed 7 Private MD: Diagnosis: Nausea; related conditions, unspecified, first trimester Presentation: 12/29 18:54 Presenting complaint: Lower abdominal cramping, dizziness, and N/V since last night. Pt hb reports she is 9 weeks , , LMP 10/27, JOJO 08/03. Transition of care: patient was not received from another setting of care. Onset of symptoms was December 28, 2018. Risk Assessment: Do you want to hurt yourself or someone else? Patient reports no desire to harm self or others. Care prior to arrival: None. 18:54 Method Of Arrival: Ambulatory hb 18:54 Acuity: MARY 3 hb 21:07 Initial Sepsis Screen: Does the patient meet any 2 criteria? No. Patient's initial ak1 sepsis screen is negative. Does the patient have a suspected source of infection? No. Patient's initial sepsis screen is negative. Triage Assessment: 21:02 General: Appears in no apparent distress. Behavior is calm, cooperative. Pain: Denies ak1 pain. EENT: No signs and/or symptoms were reported regarding the EENT system. Neuro: Level of Consciousness is awake, alert, obeys commands, Oriented to person, place, time, situation, Criminal Attorney are equal bilaterally Moves all extremities. Gait is steady, Speech is normal. Cardiovascular: No deficits noted. Respiratory: No deficits noted. GI: Abdomen is round non-distended, Bowel sounds present X 4 quads. Reports nausea, vomiting. : No signs and/or symptoms were reported regarding the genitourinary system. Derm: No signs and/or symptoms reported regarding the dermatologic system. Musculoskeletal: No signs and/or symptoms reported regarding the musculoskeletal system. 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 - Social history:: Smoking status: Patient uses tobacco products, smokes one-half pack cigarettes per day. - Ebola Screening: : No symptoms or risks identified at this time. Screenin:01 Abuse screen: Denies threats or abuse. Denies injuries from another. Nutritional ak1 screening: No deficits noted. Tuberculosis screening: No symptoms or risk factors identified. Fall Risk None identified. Assessment: 21:06 GI: Abd is soft and non tender X 4 quads. ak1 21:07 Reassessment: Patient appears in no apparent distress at this time. No changes from ak1 previously documented assessment. Patient and/or family updated on plan of care and expected duration. Pain level reassessed. no vomiting noted while in ER7. pt with steady gait to ER restroom multiple times during stay. RN at bedside with doppler to attempt to find FHT as pt requested. pt is only 9 weeks. Patient states symptoms have improved. Vital Signs: 18:56 BP 115 / 73; Pulse 83; Resp 16; Temp 98.5; Pulse Ox 100% on R/A; Weight 79.38 kg; hb Height 5 ft. 3 in. (160.02 cm); Pain 6/10; 19:40 BP 108 / 67 Supine; Pulse 79; Resp 16; Pulse Ox 98% on R/A; oe 19:41 BP 106 / 70 Sitting; Pulse 16; Resp 80; Pulse Ox 99% on R/A; oe 19:43 BP 99 / 71 Standing; Pulse 91; Resp 18; Pulse Ox 99% on R/A; oe 21:08 BP 104 / 70; Pulse 79; Resp 16; Temp 98.1; Pulse Ox 99% on R/A; Pain 0/10; ak1 18:56 Body Mass Index 31.00 (79.38 kg, 160.02 cm) hb ED Course: 18:44 Patient arrived in ED. mr 18:56 Triage completed. hb 18:56 Arm band placed on right wrist. hb 19:07 Miles Barajas PA is PHCP. cp 19:07 Leon Hannon MD is Attending Physician. cp 19:30 Tiffany Almonte, RN is Primary Nurse. ak1 20:00 Inserted saline lock: 20 gauge in right antecubital area, using aseptic technique. oe Blood collected. 21:03 Patient has correct armband on for positive identification. Bed in low position. Call ak1 light in reach. Side rails up X 1. Adult w/ patient. Pulse ox on. NIBP on. Door closed. Lights dimmed. Warm blanket given. pt family at bedside after being d/c'd from ER. 21:03 No provider procedures requiring assistance completed. ak1 21:40 IV discontinued, intact, bleeding controlled, No redness/swelling at site. Pressure ak1 dressing applied. Administered Medications: 20:07 Drug: NS 0.9% 1000 ml Route: IV; Rate: 1 bolus; Site: right antecubital; ak1 21:10 Follow up: IV Status: Completed infusion ak1 20:07 Drug: Zofran 4 mg Route: IVP; Site: right antecubital; ak1 20:44 Follow up: Response: No adverse reaction ak1 Outcome: 20:50 Discharge ordered by . jone 21:06 Condition: stable ak1 21:40 Discharged to home ambulatory, with family. ak1 21:40 Discharge instructions given to patient, family, Instructed on discharge instructions, follow up and referral plans. no drinking with medication, no driving heavy equipment, medication usage, Demonstrated understanding of instructions, follow-up care, medications, Prescriptions given X 2. 21:41 Patient left the ED. ak1 Signatures: Kaia Keenan TrinamilagroshectorTiffany, RN RN ak1 Miles Barajas PA PA cp Baxter, Heather, ANTONIETTA RN Aamir Suazo oe
== END 2018-12-29 21:41 | disposition home or self-care (01) ==
LOC: ER 18:40
DX: O26.891 Other specified pregnancy related conditions, first trimester (principal); O99.331 Smoking (tobacco) complicating pregnancy, first trimester; F17.210 Nicotine dependence, cigarettes, uncomplicated; Z3A.09 9 weeks gestation of pregnancy; Z88.0 Allergy status to penicillin
CPT/HCPCS: 36415; 80048; 80076; 81003; 81025; 83690; 85025; 96361; 96374; 99284; J2405; J7030

== ENCOUNTER 2019-01-29 12:25 | Emergency (ER) | payer OTHER ==
--- OUTSIDE RECORDS SUMMARY | 2019-01-29 12:28 | XMS REPORT ---
:1985 [facility] Address [address] [place] [address] [address] [place] [address] Care Team Providers Name Role Phone Unavailable Unavailable Unavailable Problems This patient has no known problems. Allergies, Adverse Reactions, Alerts This patient has no known allergies or adverse reactions. Medications This patient has no known medications.
[2019-01-29 13:14] LABS: Absolute Lymphocytes (CBC) 2.3 K/uL (0.7-4.9); Basophils % 0.9 % (0-1.3); Eosinophils % 1.9 % (0-4.4); Hematocrit 33.8 % (36.0-45.0); MPV 8.9 fL (7.6-11.3); Monocytes % 5.4 % (3.3-12.3)
[2019-01-29 13:48] LABS: BUN Blood Urea Nitrogen 8 mg/dL (7-18); Bicarbonate 23 mmol/L (21-32); Glucose Level 88 mg/dL (74-106); HCG, Quantitative 36484 mIU/mL (1-3); Potassium 3.6 mmol/L (3.5-5.1); Sodium Level 140 mmol/L (136-145)
[2019-01-29 15:10] LABS: Urine Blood 1+ (NEG); Urine Glucose NEGATIVE (NEG); Urine Protein TRACE (NEG); Urine Specific Gravity 1.015 (1.005-1.030); Urine pH 6.5 (5.0-7.0)
--- NOTE | 2019-01-29 15:22 | ER ---
Nurse's Notes [facility] Name: Mikayla Torrez Age: 33 yrs Sex: Female : 1985 Arrival Date: 01/29/2019 Time: 12:29 Bed 18 Private MD: Diagnosis: Epilepsy and recurrent seizures;12 weeks gestation of Presentation: 01/29 12:36 Presenting complaint: EMS states: pt had witness seizure at home lasting approx 2 iw minutes, was post-ictal on scene, now A\T\OX4, pt is 14 weeks , , +hx of seizures, pt states she has been off meds since her , was taking Ativan PRN. pt also c/o suprapubic pain since last night 02/16, was recently treated for UTI, denies burning with urination, denies vaginal bleeding, pain described as sharp and cramping. Transition of care: patient was not received from another setting of care. Onset of symptoms was January 29, 2019. Risk Assessment: Do you want to hurt yourself or someone else? Patient reports no desire to harm self or others. Initial Sepsis Screen: Does the patient meet any 2 criteria? No. Patient's initial sepsis screen is negative. Does the patient have a suspected source of infection? No. Patient's initial sepsis screen is negative. Care prior to arrival: IV initiated. 20 GA, in the left antecubital area, Glucose check: 136. Activity prior to arrival: Activity prior to arrival: seizure. 12:36 Method Of Arrival: EMS: [facility] 12:36 Acuity: MARY 3 iw TRANSPORTATION DEPARTMENT HEAD: 15:30 LMP 09/2018 iw Historical: - Allergies: 12:44 PENICILLINS; iw - PMHx: 12:44 Diabetes - NIDDM; Herniated disc; Seizures; iw - PSHx: 12:44 ; Tonsillectomy; iw - Immunization history:: Adult Immunizations unknown. - Ebola Screening: : Patient negative for fever greater than or equal to 101.5 degrees Fahrenheit, and additional compatible Ebola Virus Disease symptoms Patient denies exposure to infectious person Patient denies travel to an Ebola-affected area in the 21 days before illness onset No symptoms or risks identified at this time. - Social history:: Smoking status: unknown. Screenin:00 Abuse screen: Denies threats or abuse. Nutritional screening: No deficits noted. em Tuberculosis screening: No symptoms or risk factors identified. Fall Risk None identified. Assessment: 13:00 General: Appears in no apparent distress. comfortable, Behavior is calm, cooperative, em Denies fever. Pain: Complains of pain in suprapubic area Pain currently is 7 out of 10 on a pain scale. Quality of pain is described as sharp. Neuro: Level of Consciousness is awake, alert, obeys commands, Oriented to person, place, time, situation, no postictal state noted. Denies Seizure activity reported prior to arrival. Type of seizure: absence seizure. Seizure lasted approximately .5 minutes. Cardiovascular: Capillary refill < 3 seconds Patient's skin is warm and dry. Respiratory: Airway is patent Respiratory effort is even, unlabored, Respiratory pattern is regular, symmetrical. GI: Reports nausea. Derm: Skin is intact, is healthy with good turgor, Skin is pink, warm \T\ dry. Musculoskeletal: Capillary refill < 3 seconds, Range of motion: intact in all extremities. 13:20 Reassessment: Patient appears in no apparent distress at this time. I agree with above iw assessment by Italo Ochoa LVN. 13:47 Reassessment: Patient appears in no apparent distress at this time. Patient and/or em family updated on plan of care and expected duration. Pain level reassessed. pt ambulated to restroom with assistance from significant other, tolerated well, attached to monitor. 15:00 Reassessment: returned from US, pending results, no complaints at this time. em Vital Signs: 12:44 BP 116 / 80; Pulse 87; Resp 16 S; Temp 98.2; Pulse Ox 100% on R/A; Weight 81.19 kg; iw Height 5 ft. 3 in. (160.02 cm); Pain 7/10; 14:00 BP 115 / 74; Pulse 76; Resp 18; Pulse Ox 99% on R/A; em 15:14 BP 108 / 71; Pulse 81; Resp 16; Pulse Ox 99% on R/A; em 12:44 Body Mass Index 31.71 (81.19 kg, 160.02 cm) iw Zakia Coma Score: 15:00 Eye Response: spontaneous(4). Verbal Response: oriented(5). Motor Response: obeys iw commands(6). Total: 15. ED Course: 12:29 Patient arrived in ED. em 12:33 Italo Ochoa LVN is Primary Nurse. em 12:43 Triage completed. iw 12:44 Marianne Pham FNP-C [facility]. kb 12:44 Miles Shah MD is Attending Physician. kb 12:44 Arm band placed on. iw 12:44 Maintain EMS IV. Dressing intact. Good blood return noted. Site clean \T\ dry. Gauge \T\ em site: 20 G LAC. 13:00 Patient has correct armband on for positive identification. Placed in gown. Bed in low em position. Call light in reach. Side rails up X2. Adult w/ patient. Seizure precautions initiated. Pulse ox on. NIBP on. 14:43 IV discontinued, intact, bleeding controlled, No redness/swelling at site. Pressure dh3 dressing applied, by ANTONIETTA Paige. 15:00 Matter Eval Tm 1 In Process Unspecified. EDMS 15:40 IV discontinued, intact, bleeding controlled, No redness/swelling at site. Pressure iw dressing applied. 15:43 No provider procedures requiring assistance completed. em Administered Medications: No medications were administered Outcome: 15:21 Discharge ordered by . kb 15:44 Discharged to home ambulatory, with family. em 15:44 Condition: good 15:44 Discharge instructions given to patient, family, Instructed on discharge instructions, follow up and referral plans. Demonstrated understanding of instructions, follow-up care. 15:45 Patient left the ED. em Signatures: Dispatcher [employer] EDMS Marianne Pham FNP-C FILM RECORDIST-Ckb Italo Ochoa LVN LVN em Joelle Cabral RN RN Sophia Payan 3 Corrections: (The following items were deleted from the chart) 12:43 12:36 Activity prior to arrival: iw iw 12:45 12:36 Presenting complaint: EMS states: pt had witness seizure at home lasting approx 2 iw minutes, was post-ictal on scene, now A\T\OX4, pt is 14 weeks , , +hx of seizures, pt states she has been off meds since her , was taking Ativan PRN. pt also c/o suprapubic pain since last night 02/16, was recently treated for UTI, denies burning with urination iw
--- NOTE | 2019-01-29 15:22 | EDPHYS ---
Physician Documentation [facility] Name: Mikayla Torrez Age: 33 yrs Sex: Female : 1985 Arrival Date: 01/29/2019 Time: 12:29 Bed 18 Private MD: ALEXANDER Physician Miles Shah HPI: 01/29 13:34 This 33 yrs old Female presents to ER via EMS with complaints of Seizure. kb 13:34 The patient presents after having a single isolated seizure, that lasted 2 minute(s). kb Character of seizure(s): Loss of consciousness: the patient experienced loss of consciousness, Motor activity: generalized, shaking all over, Incontinence: none, Apnea: the patient did not experience apnea, Circulation: the patient did not experience evidence of pulse disturbance. Seizure onset: just prior to arrival. Context: the seizure(s) was witnessed, by a significant other, , occurred at home, Contributing factors: . Seizure Hx: Original onset: since childhood,\E\. Associated injury: The patient did not suffer any apparent associated injury. Current symptoms: Currently, the patient is not experiencing any symptoms, the patient feels back to baseline, no decreased level of consciousness, no confusion, no dysphasia, no headache, no paralysis, no visual changes. The patient has experienced similar episodes in the past. The patient has not recently seen a physician. 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 States she normally takes ativan as needed, but hasn't been because she is . Reports she has an appt with the specialist to treat her seizures while on Thursday. Can't remember what medication she was given for seizures during her previous pregnancies. BI MANAGER: 15:30 LMP 09/2018 iw Historical: - Allergies: 12:44 PENICILLINS; iw - PMHx: 12:44 Diabetes - NIDDM; Herniated disc; Seizures; iw - PSHx: 12:44 ; Tonsillectomy; iw - Immunization history:: Adult Immunizations unknown. - Ebola Screening: : Patient negative for fever greater than or equal to 101.5 degrees Fahrenheit, and additional compatible Ebola Virus Disease symptoms Patient denies exposure to infectious person Patient denies travel to an Ebola-affected area in the 21 days before illness onset No symptoms or risks identified at this time. - Social history:: Smoking status: unknown. ROS: 13:23 Constitutional: Negative for fever, chills, and weight loss, ENT: Negative for injury, kb pain, and discharge, Neck: Negative for injury, pain, and swelling, Cardiovascular: Negative for chest pain, palpitations, and edema, Respiratory: Negative for shortness of breath, cough, wheezing, and pleuritic chest pain, Back: Negative for injury and pain, : Negative for injury, bleeding, discharge, and swelling, MS/Extremity: Negative for injury and deformity, Skin: Negative for injury, rash, and discoloration. 13:23 Abdomen/GI: Positive for abdominal pain, Negative for nausea, vomiting, and diarrhea. 13:23 Neuro: Positive for seizure activity. Exam: 13:23 Constitutional: This is a well developed, well nourished patient who is awake, alert, kb and in no acute distress. Head/Face: Normocephalic, atraumatic. Eyes: Pupils equal round and reactive to light, extra-ocular motions intact. Lids and lashes normal. Conjunctiva and sclera are non-icteric and not injected. Cornea within normal limits. Periorbital areas with no swelling, redness, or edema. ENT: Nares patent. No nasal discharge, no septal abnormalities noted. Tympanic membranes are normal and external auditory canals are clear. Oropharynx with no redness, swelling, or masses, exudates, or evidence of obstruction, uvula midline. Mucous membranes moist. Neck: Trachea midline, no thyromegaly or masses palpated, and no cervical lymphadenopathy. Supple, full range of motion without nuchal rigidity, or vertebral point tenderness. No Meningismus. Chest/axilla: Normal chest wall appearance and motion. Nontender with no deformity. No lesions are appreciated. Cardiovascular: Regular rate and rhythm with a normal S1 and S2. No gallops, murmurs, or rubs. Normal PMI, no JVD. No pulse deficits. Respiratory: Lungs have equal breath sounds bilaterally, clear to auscultation and percussion. No rales, rhonchi or wheezes noted. No increased work of breathing, no retractions or nasal flaring. Abdomen/GI: Soft, non-tender, with normal bowel sounds. No distension or tympany. No guarding or rebound. No evidence of tenderness throughout. Skin: Warm, dry with normal turgor. Normal color with no rashes, no lesions, and no evidence of cellulitis. MS/ Extremity: Pulses equal, no cyanosis. Neurovascular intact. Full, normal range of motion. Neuro: Awake and alert, GCS 15, oriented to person, place, time, and situation. Cranial nerves II-XII grossly intact. Motor strength 5/5 in all extremities. Sensory grossly intact. Cerebellar exam normal. Normal gait. Vital Signs: 12:44 BP 116 / 80; Pulse 87; Resp 16 S; Temp 98.2; Pulse Ox 100% on R/A; Weight 81.19 kg; iw Height 5 ft. 3 in. (160.02 cm); Pain 7/10; 14:00 BP 115 / 74; Pulse 76; Resp 18; Pulse Ox 99% on R/A; em 15:14 BP 108 / 71; Pulse 81; Resp 16; Pulse Ox 99% on R/A; em 12:44 Body Mass Index 31.71 (81.19 kg, 160.02 cm) iw Baldwin Coma Score: 15:00 Eye Response: spontaneous(4). Verbal Response: oriented(5). Motor Response: obeys iw commands(6). Total: 15. MDM: 12:44 Patient medically screened. kb 13:23 Data reviewed: vital signs, nurses notes. Data interpreted: Pulse oximetry: on room air kb is 100 %. Interpretation: normal. 15:17 Counseling: I had a detailed discussion with the patient and/or guardian regarding: the kb historical points, exam findings, and any diagnostic results supporting the discharge/admit diagnosis, lab results, radiology results, the need for outpatient follow up, an OB/Gyne specialist, to return to the emergency department if symptoms worsen or persist or if there are any questions or concerns that arise at home. ED course: Pt educated to keep appt with neurologist/OB on Thursday. 01/29 12:50 Order name: Quantitative Hcg kb 01/29 12:50 Order name: Abo/rh Typing kb 01/29 12:50 Order name: Basic Metabolic Panel; Complete Time: 13:54 kb 01/29 12:50 Order name: CBC with Diff; Complete Time: 13:36 kb 01/29 12:51 Order name: HCG, Quantitative; Complete Time: 13:54 EDMS 01/29 12:51 Order name: ABO/RH typing; Complete Time: 13:36 EDSC 01/29 12:50 Order name: Urine Test (obtain specimen); Complete Time: 12:52 kb 01/29 12:50 Order name: IV Saline Lock; Complete Time: 12:52 kb 01/29 12:50 Order name: Labs collected and sent; Complete Time: 12:52 kb 01/29 12:50 Order name: NPO; Complete Time: 12:53 kb 01/29 13:03 Order name: Urine Dipstick--Ancillary (enter results); Complete Time: 15:14 eb 01/29 13:03 Order name: Urine --Ancillary (enter results); Complete Time: 15:14 eb 01/29 15:00 Order name: Matter Eval Tm 1; Complete Time: 15:27 EDSC 01/29 12:50 Order name: Urine Dipstick-Ancillary (obtain specimen); Complete Time: 12:53 kb Administered Medications: No medications were administered Disposition: 01/29/19 15:21 Discharged to Home. Impression: Epilepsy and recurrent seizures, 12 weeks gestation of . - Condition is Stable. - Discharge Instructions: First Trimester of , [id number], Seizure, Adult, [id number]. - Medication Reconciliation Form, Thank You Letter, Antibiotic Education, Prescription Opioid Use, Work release form form. - Follow up: Emergency Department; When: As needed; Reason: Worsening of condition. Follow up: Private Physician; When: 2 - 3 days; Reason: Recheck today's complaints, Continuance of care, Re-evaluation by your physician. Addendum: 01/31/2019 09:39 Co-signature as Attending Physician, Miles Shah MD I agree with the assessment and c white plan of care. Signatures: Dispatcher [employer] [facility] Marianne Pham, SANFORIZING MACHINE OPERATOR-C SANFORIZING MACHINE OPERATOR-Miles Collins MD MD cha Munoz, Edgar, SHADING PAINTER SHADING PAINTER em Joelle Cabral RN RN iw Corrections: (The following items were deleted from the chart) 01/29 15:00 13:55 Transvaginal Ob+US.RAD.BRZ ordered. [facility] 15:45 15:21 01/29/2019 15:21 Discharged to Home. Impression: Epilepsy and recurrent seizures; em 12 weeks gestation of . Condition is Stable. Forms are Medication Reconciliation Form, Thank You Letter, Antibiotic Education, Prescription Opioid Use. Follow up: Emergency Department; When: As needed; Reason: Worsening of condition. Follow up: Private Physician; When: 2 - 3 days; Reason: Recheck today's complaints, Continuance of care, Re-evaluation by your physician. kb
--- NOTE | 2019-01-29 15:27 | RAD REPORT ---
EXAM DESCRIPTION: US - Matter Tasha Tm 1 - 01/29/2019 2:59 pm CLINICAL HISTORY: , abdominal pain and cramping COMPARISON: December 13, 2018 FINDINGS: A single intrauterine gestation is identified. Heart rate is 159 bpm. No hematoma, mass or other suspicious finding. [place]-rump length measurement corresponds to a 12 W 6 D age. JOJO is 2018. No suspicion for placental abnormality. Ovaries and adnexa show no suspicious findings. IMPRESSION: Single 12 W 6 D intrauterine gestation. JOJO is 08/07/2019. No intrauterine abnormality seen. There has been appropriate interval growth since the December 13 study.
== END 2019-01-29 15:45 | disposition home or self-care (01) ==
LOC: ER 12:25
DX: O99.351 Diseases of the nervous system complicating pregnancy, first trimester (principal); G40.909 Epilepsy, unspecified, not intractable, without status epilepticus; Z3A.12 12 weeks gestation of pregnancy; Z88.0 Allergy status to penicillin
CPT/HCPCS: 36415; 76801; 80048; 81003; 81025; 84702; 85025; 86900; 86901; 99283

== ENCOUNTER 2019-01-29 19:11 | Emergency (ER) | payer OTHER ==
--- OUTSIDE RECORDS SUMMARY | 2019-01-29 19:18 | XMS REPORT ---
:1985 [facility] Address [address] [place] [address] [address] [place] [address] Care Team Providers Name Role Phone Unavailable Unavailable Unavailable Problems This patient has no known problems. Allergies, Adverse Reactions, Alerts This patient has no known allergies or adverse reactions. Medications This patient has no known medications.
[2019-01-29 21:11] LABS: Barbiturates NEGATIVE (NEGATIVE); Benzodiazepines NEGATIVE (NEGATIVE); Cocaine NEGATIVE (NEGATIVE); METHAMPHETAM NEGATIVE (NEGATIVE); Methadone NEGATIVE (NEGATIVE); Opiates NEGATIVE (NEGATIVE); Phencyclidine NEGATIVE (NEGATIVE); THC Cannibis NEGATIVE (NEGATIVE)
--- NOTE | 2019-01-29 21:13 | ER ---
Nurse's Notes [facility] Name: Mikayla Torrez Age: 33 yrs Sex: Female : 1985 Arrival Date: 01/29/2019 Time: 19:13 Bed 19 Private MD: Diagnosis: state;Epilepsy and recurrent seizures Presentation: 01/29 19:27 Presenting complaint: Patient states: Was seen in this ER a few hours ago for same aj complaint and discharged. Reports episodes where hand shake and she "zones out". Reported activity in lobby. Patient remained able to focus and track with eyes and did not appear to lose consciousness with no post ictal state. Transition of care: patient was not received from another setting of care. Onset of symptoms was January 29, 2019. Care prior to arrival: None. 19:27 Method Of Arrival: Wheelchair aj 19:27 Acuity: MARY 4 aj Triage Assessment: 19:29 General: Appears in no apparent distress. comfortable, Behavior is calm, cooperative, aj appropriate for age. Pain: Complains of pain in face. Neuro: Level of Consciousness is awake, alert, obeys commands, Oriented to person, place, time, situation, Appropriate for age Reports headache. Respiratory: Airway is patent Respiratory effort is even, unlabored, Respiratory pattern is regular, symmetrical. Derm: Skin is intact, is healthy with good turgor, Skin is pink, warm \\T\\ dry. normal. 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 Denies injuries from another. Nutritional rr5 screening: No deficits noted. Tuberculosis screening: No symptoms or risk factors identified. Fall Risk Secondary diagnosis (15 points) seizures, Mental Status- Oriented to own ability (0 pts). Total Moody Fall Scale indicates No Risk (0-24 pts). Assessment: 20:00 General: Appears in no apparent distress. comfortable, Behavior is calm, cooperative, rr5 appropriate for age. Pain: Denies pain. 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 Full function Speech is normal, Facial symmetry appears normal, Reports seizure episode. Cardiovascular: Capillary refill < 3 seconds Patient's skin is warm and dry. Respiratory: Airway is patent Respiratory effort is even, unlabored, Respiratory pattern is regular, symmetrical. GI: No signs and/or symptoms were reported involving the gastrointestinal system. : No signs and/or symptoms were reported regarding the genitourinary system. EENT: No signs and/or symptoms were reported regarding the EENT system. Derm: Skin is intact, Skin temperature is warm. Musculoskeletal: Circulation, motion, and sensation intact. Capillary refill < 3 seconds, Range of motion: intact in all extremities. 21:04 Reassessment: Patient appears in no apparent distress at this time. Patient is alert, rr5 oriented x 3, equal unlabored respirations, skin warm/dry/pink. patient refused for further management. ED provider informed AMA signed. laboratory staff Kaushal informed to cancel all the test. Vital Signs: 19:29 BP 108 / 63; Pulse 82; Resp 18; Temp 98.4; Pulse Ox 99% on R/A; Weight 81.19 kg; Height aj 5 ft. 3 in. (160.02 cm); 20:00 BP 106 / 63; Pulse 75; Resp 17; Pulse Ox 100% ; Pain 0/10; rr5 21:00 BP 115 / 70; Pulse 70; Resp 16; Pulse Ox 99% on R/A; rr5 19:29 Body Mass Index 31.71 (81.19 kg, 160.02 cm) aj Zakia Coma Score: 19:29 Eye Response: spontaneous(4). Verbal Response: oriented(5). Motor Response: obeys aj commands(6). Total: 15. ED Course: 19:13 Patient arrived in ED. am2 19:29 Triage completed. aj 19:29 Arm band placed on right wrist. Patient placed in an exam room. aj 20:00 Patient has correct armband on for positive identification. Bed in low position. Call rr5 light in reach. Side rails up X2. Adult w/ patient. Pulse ox on. NIBP on. 20:05 Patient has correct armband on for positive identification. rr5 20:05 No provider procedures requiring assistance completed. rr5 20:08 Dominick Nichols RN is Primary Nurse. rr5 20:29 Miles Barajas PA is PHCP. cp 20:29 Too Barrett MD is Attending Physician. cp 21:15 Patient did not have IV access during this emergency room visit. rr5 Administered Medications: No medications were administered Outcome: 21:15 AMA AMA form signed rr5 21:15 Condition: stable 21:15 Instructed on follow up and referral plans. Demonstrated understanding of instructions. 21:17 Patient left the ED. rr5 Signatures: Grecia Madden RN RN Miles Sommer PA PA cp Grecia Yip am2 Dominick Nichols RN RN rr5
--- NOTE | 2019-01-29 21:13 | EDPHYS ---
Physician Documentation [facility] Name: Mikayla Torrez Age: 33 yrs Sex: Female : 1985 Arrival Date: 01/29/2019 Time: 19:13 Bed 19 Private MD: ED Physician Too Barrett HPI: 01/29 20:50 This 33 yrs old Female presents to ER via Wheelchair with complaints of cp Seizure like acivity. 20:50 The patient presents with a history of multiple seizures, a total of 3. Character of cp seizure(s): Motor activity: generalized, shaking all over, Incontinence: none. Seizure onset: this morning. Seizure Hx: Original onset: since childhood,\E\ Cause: unknown, Seizure medications: Ativan, was taking Depakote about 1 and 1/2 years ago. Associated injury: The patient did not suffer any apparent associated injury. Current symptoms: Currently, the patient is not experiencing any symptoms, the patient feels back to baseline. 20:50 Significant other reports patient was discharged from this ED earlier today after cp suffering seizure and upon returning home. patient was sleeping when he noticed shaking of left hand. Patient then sat up in bed and began shaking all over. Generalized shaking lasting approximately 1-2 minutes. ICU RN: 19:29 LMP 10/27/2018 aj Historical: - Allergies: 19:29 PENICILLINS; aj - PMHx: 19:29 Diabetes - NIDDM; Herniated disc; Seizures; aj ROS: 21:00 Constitutional: Negative for body aches, chills, fever, poor PO intake. cp 21:00 Eyes: Negative for injury, pain, redness, and discharge. cp 21:00 ENT: Negative for drainage from ear(s), ear pain, sore throat, difficulty swallowing, difficulty handling secretions. 21:00 Cardiovascular: Negative for chest pain. 21:00 Respiratory: Negative for cough, shortness of breath, wheezing. 21:00 Abdomen/GI: Negative for abdominal pain, nausea, vomiting, and diarrhea. 21:00 Neuro: Negative for altered mental status, headache, weakness, actively seizing. 21:00 All other systems are negative. Exam: 21:04 Constitutional: The patient appears in no acute distress, alert, awake, non-toxic, well cp developed, well nourished. 21:04 Head/Face: Normocephalic, atraumatic. cp 21:04 Eyes: Periorbital structures: appear normal, Pupils: equal, round, and reactive to light and accomodation, Extraocular movements: intact throughout, Conjunctiva: normal, no exudate, no injection, Lids and lashes: appear normal, bilaterally. 21:04 ENT: External ear(s): are unremarkable, Ear canal(s): are normal, clear, TM's: dullness, bilaterally, Nose: is normal, Mouth: Lips: moist, Oral mucosa: pink and intact, moist, Posterior pharynx: is normal, airway is patent, no erythema, no exudate. 21:04 Neck: ROM/movement: is normal, is supple, without pain, no range of motions limitations, no meningismus, no nuchal rigidity. 21:04 Chest/axilla: Inspection: normal, Palpation: is normal, no crepitus, no tenderness. 21:04 Cardiovascular: Rate: normal, Rhythm: regular. 21:04 Respiratory: the patient does not display signs of respiratory distress, Respirations: normal, no use of accessory muscles, no retractions, no splinting, no tachypnea, labored breathing, is not present, Breath sounds: are clear throughout, no decreased breath sounds, no stridor, no wheezing. 21:04 Abdomen/GI: Inspection: abdomen appears normal, Palpation: abdomen is soft and non-tender, in all quadrants. 21:04 Neuro: Orientation: to person, place \T\ time. Mentation: is normal, Cerebellar function: is grossly normal, Motor: moves all fours, strength is normal, Sensation: no obvious gross deficits. 21:07 ECG was reviewed by the Attending Physician. cp Vital Signs: 19:29 BP 108 / 63; Pulse 82; Resp 18; Temp 98.4; Pulse Ox 99% on R/A; Weight 81.19 kg; Height aj 5 ft. 3 in. (160.02 cm); 20:00 BP 106 / 63; Pulse 75; Resp 17; Pulse Ox 100% ; Pain 0/10; rr5 21:00 BP 115 / 70; Pulse 70; Resp 16; Pulse Ox 99% on R/A; rr5 19:29 Body Mass Index 31.71 (81.19 kg, 160.02 cm) aj Minto Coma Score: 19:29 Eye Response: spontaneous(4). Verbal Response: oriented(5). Motor Response: obeys aj commands(6). Total: 15. MDM: 20:30 Patient medically screened. cp 21:00 Data reviewed: vital signs, nurses notes. cp 21:00 Refusal of service: The patient/guardian displays adequate decision making capability cp and despite a detailed discussion of alternatives, benefits, risks, and consequences refuses: all lab tests. ED course: VSS. No seizure activity observed while in ED. 01/29 20:40 Order name: Acetaminophen 01/29 20:40 Order name: Basic Metabolic Panel 01/29 20:40 Order name: CBC with Diff 01/29 20:40 Order name: Urine Drug Screen 01/29 20:54 Order name: Urine Dipstick--Ancillary (enter results) ag4 01/29 20:54 Order name: Urine --Ancillary (enter results) ag4 01/29 20:40 Order name: EKG; Complete Time: 20:42 01/29 20:40 Order name: EKG - Nurse/Tech; Complete Time: 21:18 01/29 20:40 Order name: Urine Dipstick-Ancillary (obtain specimen); Complete Time: 21:17 01/29 20:54 Order name: Urine Dipstick-Ancillary EDMS EC:07 Rate is 74 beats/min. Rhythm is regular. RI interval is normal. QRS interval is normal. cp QT interval is normal. T waves are Normal. Interpreted by me. Reviewed by me. Administered Medications: No medications were administered Disposition: 01/30 03:09 Co-signature as Attending Physician, Too Barrett MD. pkl Disposition: 01/29/19 21:12 Patient has left against medical advice. Impression: state, Epilepsy and recurrent seizures. - Patients states they are going to Home. - Condition is Stable. Follow up: Private Physician; When: 1 - 2 days; Reason: Recheck today's complaints. - Problem is an ongoing problem. - Symptoms have improved. Signatures: Dispatcher [employer] EDMS Grecia Madden RN RN aj Lam, Pin, MD MD pkMiles Ross PA PA cp Roque, Raymond, RN RN rr5 Corrections: (The following items were deleted from the chart) 01/29 21:17 21:12 01/29/2019 21:12 Patients has left against medical advice. Impression: rr5 state; Epilepsy and recurrent seizures. Patient states they are going to Home. Condition is Stable. Follow up: Private Physician; When: 1 - 2 days; Reason: Recheck today's complaints. Problem is an ongoing problem. Symptoms have improved. cp
[2019-01-29 21:23] LABS: Urine Blood NEGATIVE (NEG); Urine Glucose NEGATIVE (NEG); Urine Protein TRACE (NEG); Urine pH 7.5 (5.0-7.0)
--- NOTE | 2019-01-31 07:55 | EKG ---
Test Date: 2019-01-29 Test Time: 20:58:29 Soils Engineer: RR MEASUREMENT RESULTS: Intervals: Rate: 74 [place]: 158 QRSD: 86 QT: 384 QTc: 426 [place]: P: 33 IL: 158 QRS: 80 T: 48 INTERPRETIVE STATEMENTS: Normal sinus rhythm Normal ECG No previous ECG available for comparison Electronically Signed On 01-31-19 07:54:04 CDT by Michael Ng
== END 2019-01-29 21:17 | disposition left against medical advice (07) ==
LOC: ER 19:11
DX: O99.351 Diseases of the nervous system complicating pregnancy, first trimester (principal); G40.909 Epilepsy, unspecified, not intractable, without status epilepticus; Z3A.12 12 weeks gestation of pregnancy; Z88.0 Allergy status to penicillin
CPT/HCPCS: 80307; 81003; 81025; 93005; 99283

== ENCOUNTER 2019-02-11 18:59 | Emergency (ER) | payer OTHER ==
--- OUTSIDE RECORDS SUMMARY | 2019-02-11 19:02 | XMS REPORT ---
:1985 [facility] Address [address] [place] [address] [address] [place] [address] Care Team Providers Name Role Phone Unavailable Unavailable Unavailable Problems This patient has no known problems. Allergies, Adverse Reactions, Alerts This patient has no known allergies or adverse reactions. Medications This patient has no known medications.
[2019-02-11 20:10] LABS: Urine Blood NEGATIVE (NEG); Urine Glucose NEGATIVE (NEG); Urine Protein NEGATIVE (NEG); Urine Specific Gravity 1.015 (1.005-1.030)
[2019-02-11 20:13] LABS: Absolute Lymphocytes (CBC) 3.1 K/uL (0.7-4.9); Basophils % 0.5 % (0-1.3); Eosinophils % 2.2 % (0-4.4); Hematocrit 31.3 % (36.0-45.0); Lymphocytes % 30.9 % (15.3-44.8); MPV 9.4 fL (7.6-11.3); Monocytes % 5.2 % (3.3-12.3); RBC Red Blood Cell Count 3.47 M/uL (3.86-4.86)
[2019-02-11 20:18] LABS: BUN Blood Urea Nitrogen 6 mg/dL (7-18); Bicarbonate 23 mmol/L (21-32); Glucose Level 85 mg/dL (74-106); Potassium 3.4 mmol/L (3.5-5.1); Sodium Level 141 mmol/L (136-145)
[2019-02-11 20:23] LABS: Barbiturates NEGATIVE (NEGATIVE); Benzodiazepines NEGATIVE (NEGATIVE); Cocaine NEGATIVE (NEGATIVE); METHAMPHETAM NEGATIVE (NEGATIVE); Methadone NEGATIVE (NEGATIVE); Opiates NEGATIVE (NEGATIVE); Phencyclidine NEGATIVE (NEGATIVE); THC Cannibis NEGATIVE (NEGATIVE)
--- NOTE | 2019-02-11 20:32 | EDPHYS ---
Physician Documentation [facility] Name: Mikayla Torrez Age: 33 yrs Sex: Female : 1985 Arrival Date: 02/11/2019 Time: 19:00 Bed 24 Private MD: ED Physician Too Barrett HPI: 02/11 19:27 This 33 yrs old Female presents to ER via EMS with unknown complaint. pkl 19:27 The patient presents with a history of multiple seizures, a total of 2, that last 15 pkl second(s), the episode(s) was witnessed, by EMS personnel, by family, . Character of seizure(s): Loss of consciousness: the patient experienced loss of consciousness, brief. Seizure onset: just prior to arrival. The patient has experienced similar episodes in the past, several times. Patient is about 15 weeks . 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 - Social history:: Smoking status: Patient uses tobacco products, 7 STICKS A DAY. - Ebola Screening: : No symptoms or risks identified at this time. ROS: 19:27 Eyes: Negative for injury, pain, redness, and discharge, ENT: Negative for injury, pkl pain, and discharge, Neck: Negative for injury, pain, and swelling, Cardiovascular: Negative for chest pain, palpitations, and edema, Respiratory: Negative for shortness of breath, cough, wheezing, and pleuritic chest pain, Abdomen/GI: Negative for abdominal pain, nausea, vomiting, diarrhea, and constipation, Back: Negative for injury and pain, : Negative for injury, bleeding, discharge, and swelling, MS/Extremity: Negative for injury and deformity, Skin: Negative for injury, rash, and discoloration. 19:27 Neuro: Positive for loss of consciousness, seizure activity. Exam: 19:27 Head/Face: Normocephalic, atraumatic. Eyes: Pupils equal round and reactive to light, pkl extra-ocular motions intact. Lids and lashes normal. Conjunctiva and sclera are non-icteric and not injected. Cornea within normal limits. Periorbital areas with no swelling, redness, or edema. ENT: Nares patent. No nasal discharge, no septal abnormalities noted. Tympanic membranes are normal and external auditory canals are clear. Oropharynx with no redness, swelling, or masses, exudates, or evidence of obstruction, uvula midline. Mucous membranes moist. Neck: Trachea midline, no thyromegaly or masses palpated, and no cervical lymphadenopathy. Supple, full range of motion without nuchal rigidity, or vertebral point tenderness. No Meningismus. Chest/axilla: Normal chest wall appearance and motion. Nontender with no deformity. No lesions are appreciated. Cardiovascular: Regular rate and rhythm with a normal S1 and S2. No gallops, murmurs, or rubs. Normal PMI, no JVD. No pulse deficits. Respiratory: Lungs have equal breath sounds bilaterally, clear to auscultation and percussion. No rales, rhonchi or wheezes noted. No increased work of breathing, no retractions or nasal flaring. Abdomen/GI: Soft, non-tender, with normal bowel sounds. No distension or tympany. No guarding or rebound. No evidence of tenderness throughout. Back: No spinal tenderness. No costovertebral tenderness. Full range of motion. Skin: Warm, dry with normal turgor. Normal color with no rashes, no lesions, and no evidence of cellulitis. MS/ Extremity: Pulses equal, no cyanosis. Neurovascular intact. Full, normal range of motion. Neuro: Awake and alert, GCS 15, oriented to person, place, time, and situation. Cranial nerves II-XII grossly intact. Motor strength 5/5 in all extremities. Sensory grossly intact. Cerebellar exam normal. Normal gait. Vital Signs: 19:10 BP 107 / 69; Pulse 83; Resp 21; Pulse Ox 99% ; Weight 81.65 kg; Height 5 ft. 3 in. rv (160.02 cm); Pain 0/10; 19:12 Temp 98.9; rv 20:30 BP 110 / 71; Pulse 76; Resp 17; Temp 98.5; Pulse Ox 100% on R/A; rv 19:10 Body Mass Index 31.89 (81.65 kg, 160.02 cm) rv MDM: 19:08 Patient medically screened. pkl 20:29 Data reviewed: vital signs, nurses notes, lab test result(s). pkl 02/11 19:25 Order name: CBC with Diff; Complete Time: 20:26 pkl 02/11 19:25 Order name: Chem 7; Complete Time: 20:24 pkl 02/11 19:25 Order name: UDS; Complete Time: 20:24 pkl 02/11 20:02 Order name: Urine Dipstick--Ancillary (enter results); Complete Time: 20:12 cm6 02/11 20:04 Order name: Urine --Ancillary (enter results); Complete Time: 20:24 cm6 02/11 19:25 Order name: Heart Tones; Complete Time: 20:00 pkl 02/11 19:26 Order name: EKG; Complete Time: 20:01 pkl Administered Medications: 20:30 Drug: K-Dur 20 mEq Route: PO; rv 21:34 Follow up: Response: No adverse reaction rv Disposition: 02/11/19 20:30 Discharged to Home. Impression: Seizure disorder. 2 nd trimester . - Condition is Stable. - Medication Reconciliation Form, Thank You Letter, Antibiotic Education, Prescription Opioid Use form. - Follow up: Private Physician; When: 2 - 3 days; Reason: Re-evaluation by your physician. - Problem is new. - Symptoms have improved. Signatures: Dispatcher [employer] EDFL Too Barrett MD MD pkJasbir Blount RN RN rv Corrections: (The following items were deleted from the chart) 20:10 20:01 URINALYSIS+U.LAB.BRZ ordered. [facility] EDFL 21:37 20:30 02/11/2019 20:30 Discharged to Home. Impression: Seizure disorder. 2 nd trimester rv . Condition is Stable. Forms are Medication Reconciliation Form, Thank You Letter, Antibiotic Education, Prescription Opioid Use. Follow up: Private Physician; When: 2 - 3 days; Reason: Re-evaluation by your physician. Problem is new. Symptoms have improved. pkl
--- NOTE | 2019-02-11 20:32 | ER ---
Nurse's Notes [facility] Name: Mikayla Torrez Age: 33 yrs Sex: Female : 1985 Arrival Date: 02/11/2019 Time: 19:00 Bed 24 Private MD: Diagnosis: Seizure disorder. 2 nd trimester Presentation: 02/11 19:00 Presenting complaint: EMS states: of the patient called for a seizure. grand rv mal seizure, patient states she has attacks at least once in a month, as stress induced. Transition of care: patient was not received from another setting of care. Onset of symptoms was February 11, 2019 at 18:00. Risk Assessment: Do you want to hurt yourself or someone else? Patient reports no desire to harm self or others. Initial Sepsis Screen: Does the patient meet any 2 criteria? No. Patient's initial sepsis screen is negative. Does the patient have a suspected source of infection? No. Patient's initial sepsis screen is negative. Care prior to arrival: None. 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 - Social history:: Smoking status: Patient uses tobacco products, 7 STICKS A DAY. - Ebola Screening: : No symptoms or risks identified at this time. Screenin:02 Abuse screen: Denies threats or abuse. Denies injuries from another. Nutritional rv screening: No deficits noted. Tuberculosis screening: No symptoms or risk factors identified. Fall Risk None identified. Assessment: 19:11 General: Appears in no apparent distress. comfortable, Behavior is calm, cooperative. rv Pain: Denies pain. Neuro: Level of Consciousness is awake, alert, obeys commands, Oriented to person, place, time, situation. Neuro: Seizure activity reported prior to arrival. Type of seizure: grand mal seizure. Cardiovascular: Patient's skin is warm and dry. Respiratory: Airway is patent. GI: No signs and/or symptoms were reported involving the gastrointestinal system. : No signs and/or symptoms were reported regarding the genitourinary system. EENT: No signs and/or symptoms were reported regarding the EENT system. Derm: Skin is intact. Musculoskeletal: No signs and/or symptoms reported regarding the musculoskeletal system. Vital Signs: 19:10 BP 107 / 69; Pulse 83; Resp 21; Pulse Ox 99% ; Weight 81.65 kg; Height 5 ft. 3 in. rv (160.02 cm); Pain 0/10; 19:12 Temp 98.9; rv 20:30 BP 110 / 71; Pulse 76; Resp 17; Temp 98.5; Pulse Ox 100% on R/A; rv 19:10 Body Mass Index 31.89 (81.65 kg, 160.02 cm) rv Vitals: 20:00 Heart Tones 165 ON rlq. rv ED Course: 19:00 Patient arrived in ED. rv 19:05 Triage completed. rv 19:07 Too Barrett MD is Attending Physician. pkl 19:54 Jasbir Javier, ANTONIETTA is Primary Nurse. rv 20:00 Initial lab(s) drawn, by vt, sent to lab. Urine collected: clean catch specimen, clear, lt1 EKG done, by ED staff. Inserted saline lock: 20 gauge in right antecubital area, using aseptic technique. 20:02 UDS Sent. lt1 20:02 Chem 7 Sent. lt1 20:02 CBC with Diff Sent. lt1 20:30 No provider procedures requiring assistance completed. IV discontinued, intact, rv bleeding controlled, No redness/swelling at site. Pressure dressing applied. 20:30 Patient has correct armband on for positive identification. Placed in gown. Bed in low rv position. Call light in reach. Side rails up X2. Adult w/ patient. telemetry monitor on. Pulse ox on. NIBP on. 21:35 Arm band placed on right wrist. rv Administered Medications: 20:30 Drug: K-Dur 20 mEq Route: PO; rv 21:34 Follow up: Response: No adverse reaction rv Outcome: 20:30 Discharge ordered by . pkl 20:45 Discharged to home ambulatory. rv 20:45 Condition: good 20:45 Discharge instructions given to patient, family, Instructed on discharge instructions, rv follow up and referral plans. Demonstrated understanding of instructions, follow-up care. 21:37 Patient left the ED. rv Signatures: Too Barrett MD MD pkl Vicente, Ronaldo RN RN rv Janae Don lt1 Corrections: (The following items were deleted from the chart) 20:10 20:02 URINALYSIS+U.LAB.BRZ drawn and sent. lt1 EDMS
[2019-02-11] MEDS ORDERED: POTASSIUM CL SA 10 MEQ TAB PO ONE (20:45)
--- NOTE | 2019-02-12 07:20 | EKG ---
Test Date: 2019-02-11 Test Time: 19:09:15 Rotating Equipment Engineer: CHAKAT MEASUREMENT RESULTS: Intervals: Rate: 77 ME: 168 QRSD: 82 QT: 370 QTc: 418 [place]: P: 46 ME: 168 QRS: 68 T: 33 INTERPRETIVE STATEMENTS: Normal sinus rhythm Normal ECG Compared to ECG 01/29/2019 20:58:29 No significant changes Electronically Signed On 02-12-19 07:18:27 CDT by Karl Friend
== END 2019-02-11 21:37 | disposition home or self-care (01) ==
LOC: ER 18:59
DX: O99.352 Diseases of the nervous system complicating pregnancy, second trimester (principal); G40.909 Epilepsy, unspecified, not intractable, without status epilepticus; O99.332 Smoking (tobacco) complicating pregnancy, second trimester; Z3A.15 15 weeks gestation of pregnancy; F17.210 Nicotine dependence, cigarettes, uncomplicated; Z88.0 Allergy status to penicillin
CPT/HCPCS: 36415; 80048; 80307; 81003; 81025; 85025; 93005; 99285

== ENCOUNTER 2019-02-17 21:45 | Emergency (ER) | payer OTHER ==
--- OUTSIDE RECORDS SUMMARY | 2019-02-17 21:47 | XMS REPORT ---
:1985 [facility] [address] [place] [address] Care Team Providers Name Role Phone Unavailable Unavailable Unavailable Problems This patient has no known problems. Allergies, Adverse Reactions, Alerts This patient has no known allergies or adverse reactions. Medications This patient has no known medications.
--- NOTE | 2019-02-17 22:49 | ER ---
Nurse's Notes [facility] Name: Mikayla Torrez Age: 33 yrs Sex: Female : 1985 Arrival Date: 02/17/2019 Time: 21:46 Bed 28 Private MD: Diagnosis: Weakness Presentation: 02/17 21:47 Presenting complaint: EMS states: patient is about to have seizures, patient describes fu feeling as "warm and weak". Transition of care: patient was not received from another setting of care. Onset of symptoms was February 17, 2019 at 20:00. Risk Assessment: Do you want to hurt yourself or someone else? Patient reports no desire to harm self or others. Initial Sepsis Screen: Does the patient meet any 2 criteria? No. Patient's initial sepsis screen is negative. Does the patient have a suspected source of infection? No. Patient's initial sepsis screen is negative. Care prior to arrival: None. 21:47 Method Of Arrival: EMS: [facility] fu 21:47 Acuity: MARY 3 fu Triage Assessment: 21:55 General: Appears uncomfortable, Behavior is cooperative, appropriate for age, anxious, fu Reports feeling warm and weak. Denies fever, fatigue. Pain: Denies pain. EENT: No signs and/or symptoms were reported regarding the EENT system. Neuro: Level of Consciousness is awake, alert, obeys commands, Oriented to person, place, time, situation, Cyber Security Architect are equal bilaterally Gait is steady, Speech is normal, Facial symmetry appears normal. Neuro: Moves all extremities. Weakness. Respiratory: Breath sounds are clear bilaterally. GI: No signs and/or symptoms were reported involving the gastrointestinal system. Derm: No signs and/or symptoms reported regarding the dermatologic system. 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 - Social history:: Smoking status: Patient uses tobacco products, 7 sticks a day. - Ebola Screening: : No symptoms or risks identified at this time. Screenin:45 Abuse screen: Denies threats or abuse. Nutritional screening: No deficits noted. fu Tuberculosis screening: No symptoms or risk factors identified. Fall Risk None identified. 22:52 The patient has not been NPO before screening. The patient is alert, able to follow fu commands. The patient does not exhibit slurred or garbled speech The patient is not exhibiting difficulty speaking. The patient does not exhibit difficulty understanding words. The patient is able to swallow own secretions with no drooling or need for suction. Patient tolerated one teaspoon of water. No drooling, immediate coughing, gurgling, or clearing of the throat was noted. The patient tolerated 90mL of water. No drooling, immediate coughing, gurgling, or clearing of the throat was noted. The patient passed the bedside swallow screening. Oral medications may be given as ordered. Contact Physician for further diet orders. Assessment: 21:50 General: Appears uncomfortable, Behavior is calm, cooperative, appropriate for age, fu Denies fever, fatigue, chills. Pain: Denies pain. Neuro: Level of Consciousness is awake, alert, obeys commands, Oriented to person, place, time, situation, Cyber Security Architect are Moves all extremities. Full function Gait is steady, Speech is normal, Facial symmetry appears normal, Intact Reports weakness. Cardiovascular: Heart tones S2 Capillary refill < 3 seconds fingers toes Chest pain is denied. Respiratory: Airway is patent Breath sounds are clear bilaterally. : No signs and/or symptoms were reported regarding the genitourinary system. EENT: No signs and/or symptoms were reported regarding the EENT system. Derm: No signs and/or symptoms reported regarding the dermatologic system. 21:55 Reassessment: patient states she is 16 weeks .. fu 22:49 Reassessment: Patient is alert, oriented x 3, equal unlabored respirations, skin fu warm/dry/pink. 23:07 Reassessment: Patient is alert, oriented x 3, equal unlabored respirations, skin fu warm/dry/pink. Patient denies pain at this time. Patient states feeling better. Vital Signs: 21:58 BP 104 / 75; Pulse 81; Resp 16; Temp 98.7; Pulse Ox 100% ; Pain 0/10; fu 23:00 BP 93 / 63; Pulse 76; Resp 20; Temp 98.2; Pulse Ox 98% ; Pain 0/10; fu Vitals: 22:15 Heart Tones 149. fu ED Course: 21:46 Patient arrived in ED. ds1 21:47 Darrin Batista, RN is Primary Nurse. fu 21:50 Zaire Gasca MD is Attending Physician. 21:51 Triage completed. fu 22:00 Assisted to bathroom. fu 22:01 Arm band placed on left wrist. fu 22:45 Patient has correct armband on for positive identification. Bed in low position. Call fu light in reach. Side rails up X2. Seizure precautions initiated. 22:45 No provider procedures requiring assistance completed. fu 22:53 Lights dimmed. fu 22:56 Patient did not have IV access during this emergency room visit. fu Administered Medications: No medications were administered Outcome: 22:49 Discharge ordered by . 23:13 Discharged to home ambulatory. fu 23:13 Condition: improved 23:13 Discharge instructions given to patient, Instructed on discharge instructions, Demonstrated understanding of instructions, follow-up care. 23:14 Patient left the ED. fu Signatures: Natasha Lance ds1 Zaire Gasca MD MD Darrin Batista, RN RN fu
--- NOTE | 2019-02-17 22:49 | EDPHYS ---
Physician Documentation [facility] Name: Mikayla Torrez Age: 33 yrs Sex: Female : 1985 Arrival Date: 02/17/2019 Time: 21:46 Bed 28 Private MD: ED Physician Zaire Gasca HPI: 02/17 22:42 This 33 yrs old Female presents to ER via EMS with complaints of Weakness. gs 22:42 The patient presents to the emergency department with weakness of the entire body, gs generalized weakness. Onset: The symptoms/episode began/occurred today. Context: occurred at home. Associated signs and symptoms: Pertinent negatives: altered mental status, fever, headache, seizure. Severity of symptoms: At their worst the symptoms were moderate in the emergency department the symptoms are unchanged. Current symptoms: Currently, the patient is not experiencing any symptoms. The patient has experienced similar episodes in the past, several times, has sz disorder concerned might have a sz. 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 - Social history:: Smoking status: Patient uses tobacco products, 7 sticks a day. - Ebola Screening: : No symptoms or risks identified at this time. ROS: 22:42 All other systems are negative. gs Exam: 22:42 Head/Face: Normocephalic, atraumatic. Eyes: Pupils equal round and reactive to light, gs extra-ocular motions intact. Lids and lashes normal. Conjunctiva and sclera are non-icteric and not injected. Cornea within normal limits. Periorbital areas with no swelling, redness, or edema. ENT: Nares patent. No nasal discharge, no septal abnormalities noted. Tympanic membranes are normal and external auditory canals are clear. Oropharynx with no redness, swelling, or masses, exudates, or evidence of obstruction, uvula midline. Mucous membranes moist. Neck: Trachea midline, no thyromegaly or masses palpated, and no cervical lymphadenopathy. Supple, full range of motion without nuchal rigidity, or vertebral point tenderness. No Meningismus. Chest/axilla: Normal chest wall appearance and motion. Nontender with no deformity. No lesions are appreciated. Cardiovascular: Regular rate and rhythm with a normal S1 and S2. No gallops, murmurs, or rubs. Normal PMI, no JVD. No pulse deficits. Respiratory: Lungs have equal breath sounds bilaterally, clear to auscultation and percussion. No rales, rhonchi or wheezes noted. No increased work of breathing, no retractions or nasal flaring. Abdomen/GI: Soft, non-tender, with normal bowel sounds. No distension or tympany. No guarding or rebound. No evidence of tenderness throughout. Back: No spinal tenderness. No costovertebral tenderness. Full range of motion. Skin: Warm, dry with normal turgor. Normal color with no rashes, no lesions, and no evidence of cellulitis. MS/ Extremity: Pulses equal, no cyanosis. Neurovascular intact. Full, normal range of motion. Neuro: Awake and alert, GCS 15, oriented to person, place, time, and situation. Cranial nerves II-XII grossly intact. Motor strength 5/5 in all extremities. Sensory grossly intact. Cerebellar exam normal. Normal gait. 22:42 Constitutional: The patient appears in no acute distress, alert, awake. Vital Signs: 21:58 BP 104 / 75; Pulse 81; Resp 16; Temp 98.7; Pulse Ox 100% ; Pain 0/10; fu 23:00 BP 93 / 63; Pulse 76; Resp 20; Temp 98.2; Pulse Ox 98% ; Pain 0/10; fu MDM: 22:06 Patient medically screened. 22:42 Data reviewed: vital signs, nurses notes, lab test result(s). Response to treatment: gs the patient's symptoms have mildly improved after treatment. ED course: ddx-dehydration, sz aura. 02/17 22:07 Order name: Urine Microscopic Only 02/17 22:30 Order name: Urine Dipstick--Ancillary (enter results) ar5 02/17 22:07 Order name: Urine Dipstick-Ancillary (obtain specimen) 02/17 22:07 Order name: Heart Tones; Complete Time: 22:14 gs Administered Medications: No medications were administered Disposition: 02/17/19 22:49 Discharged to Home. Impression: Weakness. - Condition is Stable. - Discharge Instructions: Weakness, Fatigue. - Medication Reconciliation Form, Thank You Letter, Antibiotic Education, Prescription Opioid Use form. - Follow up: Private Physician; When: 2 - 3 days; Reason: Re-evaluation by your physician. Signatures: Dispatcher [employer] Zaire Nichole MD MD gs Umadhay, Felix RN RN fu Corrections: (The following items were deleted from the chart) 23:14 22:49 02/17/2019 22:49 Discharged to Home. Impression: Weakness. Condition is Stable. fu Forms are Medication Reconciliation Form, Thank You Letter, Antibiotic Education, Prescription Opioid Use. Follow up: Private Physician; When: 2 - 3 days; Reason: Re-evaluation by your physician. starla
[2019-02-17 23:12] LABS: Urine Bacteria <20 /HPF (<20); Urine Culture Reflex Order NOT NEEDED; Urine Mucus SLIGHT /HPF (NONE SEEN); Urine RBC NONE SEEN /HPF (NONE SEEN)
[2019-02-17 23:13] LABS: Urine Glucose NEGATIVE (NEG); Urine Specific Gravity >1.030 (1.005-1.030)
[2019-02-17 23:14] LABS: Urine Blood NEGATIVE (NEG); Urine Protein TRACE (NEG); Urine pH 6.5 (5.0-7.0)
== END 2019-02-17 23:14 | disposition home or self-care (01) ==
LOC: ER 21:45
DX: R53.1 Weakness (principal); G40.909 Epilepsy, unspecified, not intractable, without status epilepticus; Z72.0 Tobacco use; Z88.0 Allergy status to penicillin
CPT/HCPCS: 81003; 81015; 99283

== ENCOUNTER 2019-03-04 09:31 | Emergency (ER) | payer OTHER ==
--- OUTSIDE RECORDS SUMMARY | 2019-03-04 09:34 | XMS REPORT ---
:1985 [facility] [address] [place] [address] Care Team Providers Name Role Phone Unavailable Unavailable Unavailable Problems This patient has no known problems. Allergies, Adverse Reactions, Alerts This patient has no known allergies or adverse reactions. Medications This patient has no known medications.
[2019-03-04] MEDS ORDERED: ACETAMINOPHEN 500 MG TAB ONE (10:55)
--- NOTE | 2019-03-04 11:18 | EDPHYS ---
Physician Documentation [facility] Name: Mikayla Torrez Age: 33 yrs Sex: Female : 1985 Arrival Date: 03/04/2019 Time: 09:33 Bed 13 Private MD: ED Physician Miles Shah HPI: 03/04 11:16 This 33 yrs old Female presents to ER via Ambulatory with complaints of Leg kb Pain. 11:24 The patient presents with pain. The complaints affect the left quadriceps, right kb quadriceps. Context: The problem was sustained at home, resulted from an unknown cause, the patient can fully bear weight, the patient is able to ambulate. Onset: The symptoms/episode began/occurred last night. Modifying factors: The symptoms are alleviated by nothing. the symptoms are aggravated by nothing. Associated signs and symptoms: The patient has no apparent associated signs or symptoms. Treatment prior to arrival includes: no previous treatment. Severity of symptoms: At their worst the symptoms were mild, moderate, in the emergency department the symptoms are unchanged. The patient has not experienced similar symptoms in the past. The patient has not recently seen a physician. 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 - Social history:: Smoking status: Patient uses tobacco products, smokes one-half pack cigarettes per day. - Ebola Screening: : Patient denies exposure to infectious person Patient denies travel to an Ebola-affected area in the 21 days before illness onset. ROS: 11:26 Constitutional: Negative for fever, chills, and weight loss, Neck: Negative for injury, kb pain, and swelling, Cardiovascular: Negative for chest pain, palpitations, and edema, Respiratory: Negative for shortness of breath, cough, wheezing, and pleuritic chest pain, Abdomen/GI: Negative for abdominal pain, nausea, vomiting, diarrhea, and constipation, Back: Negative for injury and pain, Skin: Negative for injury, rash, and discoloration, Neuro: Negative for headache, weakness, numbness, tingling, and seizure. 11:26 MS/extremity: Positive for pain. Exam: 11:26 Constitutional: This is a well developed, well nourished patient who is awake, alert, kb and in no acute distress. Head/Face: Normocephalic, atraumatic. Chest/axilla: Normal chest wall appearance and motion. Nontender with no deformity. No lesions are appreciated. Cardiovascular: Regular rate and rhythm with a normal S1 and S2. No gallops, murmurs, or rubs. Normal PMI, no JVD. No pulse deficits. Respiratory: Lungs have equal breath sounds bilaterally, clear to auscultation and percussion. No rales, rhonchi or wheezes noted. No increased work of breathing, no retractions or nasal flaring. Abdomen/GI: Soft, non-tender, with normal bowel sounds. No distension or tympany. No guarding or rebound. No evidence of tenderness throughout. Skin: Warm, dry with normal turgor. Normal color with no rashes, no lesions, and no evidence of cellulitis. MS/ Extremity: Pulses equal, no cyanosis. Neurovascular intact. Full, normal range of motion. Neuro: Awake and alert, GCS 15, oriented to person, place, time, and situation. Cranial nerves II-XII grossly intact. Motor strength 5/5 in all extremities. Sensory grossly intact. Cerebellar exam normal. Normal gait. Vital Signs: 09:39 BP 102 / 56; Pulse 100; Resp 18; Temp 98.6(O); Pulse Ox 99% on R/A; Weight 81.19 kg; ss Height 5 ft. 3 in. (160.02 cm); Pain 9/10; 09:39 Body Mass Index 31.71 (81.19 kg, 160.02 cm) ss MDM: 09:47 Patient medically screened. kb 11:14 Data reviewed: vital signs, nurses notes. Data interpreted: Pulse oximetry: on room air kb is 99 %. Interpretation: normal. Counseling: I had a detailed discussion with the patient and/or guardian regarding: the historical points, exam findings, and any diagnostic results supporting the discharge/admit diagnosis, radiology results, the need for outpatient follow up, a family practitioner, to return to the emergency department if symptoms worsen or persist or if there are any questions or concerns that arise at home. 03/04 09:51 Order name: US Extremity Venous W Compression Mukund; Complete Time: 11:28 kb 03/04 09:51 Order name: FHT's; Complete Time: 10:00 kb Administered Medications: 10:41 Drug: Tylenol 1000 mg Route: PO; iw Disposition: 15:14 Co-signature as Attending Physician, Miles Shah MD I agree with the assessment and carolyn plan of care. Disposition: 03/04/19 11:17 Discharged to Home. Impression: Pain in left leg, Pain in right leg. - Condition is Stable. - Discharge Instructions: Musculoskeletal Pain. - Medication Reconciliation Form, Thank You Letter, Antibiotic Education, Prescription Opioid Use form. - Follow up: Emergency Department; When: As needed; Reason: Worsening of condition. Follow up: Private Physician; When: 2 - 3 days; Reason: Recheck today's complaints, Continuance of care, Re-evaluation by your physician. Signatures: Dispatcher [employer] EDMarianne Paez, SEC ACCOUNTANT-C SEC ACCOUNTANT-Miles Collins MD MD cha Williams, Irene, ANTONIETTA RN Kamila Peñaloza RN RN ss Corrections: (The following items were deleted from the chart) 11:25 11:17 03/04/2019 11:17 Discharged to Home. Impression: Pain in left leg; Pain in right iw leg. Condition is Stable. Forms are Medication Reconciliation Form, Thank You Letter, Antibiotic Education, Prescription Opioid Use. Follow up: Emergency Department; When: As needed; Reason: Worsening of condition. Follow up: Private Physician; When: 2 - 3 days; Reason: Recheck today's complaints, Continuance of care, Re-evaluation by your physician. kb
--- NOTE | 2019-03-04 11:18 | ER ---
Nurse's Notes [facility] Name: Mikayla Torrez Age: 33 yrs Sex: Female : 1985 Arrival Date: 03/04/2019 Time: 09:33 Bed 13 Private MD: Diagnosis: Pain in left leg;Pain in right leg Presentation: 03/04 09:35 Presenting complaint: Patient states: "Both of my legs feel like they are on fire." Pt ss reports that symptoms began at 2100 last night. Transition of care: patient was not received from another setting of care. Onset of symptoms was March 06, 2019. Risk Assessment: Do you want to hurt yourself or someone else? Patient reports no desire to harm self or others. Initial Sepsis Screen: Does the patient meet any 2 criteria? HR > 90 bpm. Does the patient have a suspected source of infection? No. Patient's initial sepsis screen is negative. Care prior to arrival: None. 09:35 Method Of Arrival: Ambulatory ss 09:35 Acuity: MARY 3 09:40 Note Pt is 18 weeks . 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 - Social history:: Smoking status: Patient uses tobacco products, smokes one-half pack cigarettes per day. - Ebola Screening: : Patient denies exposure to infectious person Patient denies travel to an Ebola-affected area in the 21 days before illness onset. Screenin:49 Abuse screen: Denies threats or abuse. Denies injuries from another. Nutritional iw screening: No deficits noted. Tuberculosis screening: No symptoms or risk factors identified. Fall Risk None identified. Assessment: 09:47 General: Appears in no apparent distress. Behavior is calm, cooperative. Pain: iw Complains of pain in right quadriceps and left quadriceps. Neuro: Level of Consciousness is awake, alert, obeys commands, Oriented to person, place, time, situation, Moves all extremities. Full function. Cardiovascular: Patient's skin is warm and dry. Respiratory: Respiratory effort is even, unlabored, Respiratory pattern is regular, symmetrical. GI: No signs and/or symptoms were reported involving the gastrointestinal system. Derm: Skin is intact, is healthy with good turgor. Musculoskeletal: Range of motion: intact in all extremities, Reports pain in right quadriceps. Musculoskeletal: Reports pain in left quadriceps. 10:40 Reassessment: Patient appears in no apparent distress at this time. Patient and/or iw family updated on plan of care and expected duration. Pain level reassessed. Patient is alert, oriented x 3, equal unlabored respirations, skin warm/dry/pink. pt requesting tylenol for pain and sprite, given now. Vital Signs: 09:39 BP 102 / 56; Pulse 100; Resp 18; Temp 98.6(O); Pulse Ox 99% on R/A; Weight 81.19 kg; ss Height 5 ft. 3 in. (160.02 cm); Pain 9/10; 09:39 Body Mass Index 31.71 (81.19 kg, 160.02 cm) ss Vitals: 10:05 Heart Tones 144. iw ED Course: 09:33 Patient arrived in ED. as 09:38 Triage completed. ss 09:39 Arm band placed on right wrist. ss 09:47 Joelle Cabral RN is Primary Nurse. iw 09:47 Marianne Pham FNP-C is PHCP. kb 09:47 Miles Shah MD is Attending Physician. kb 10:04 Patient has correct armband on for positive identification. iw 11:02 US Extremity Venous W Compression Mukund In Process Unspecified. EDMS 11:25 No provider procedures requiring assistance completed. Patient did not have IV access iw during this emergency room visit. Administered Medications: 10:41 Drug: Tylenol 1000 mg Route: PO; iw Outcome: 11:17 Discharge ordered by . kb 11:25 Discharged to home ambulatory. iw 11:25 Condition: good 11:25 Discharge instructions given to patient, Instructed on discharge instructions, follow up and referral plans. Demonstrated understanding of instructions, follow-up care. 11:25 Patient left the ED. iw Signatures: Dispatcher [employer] EDMS Marianne Pham FNP-C FNP-Rachel Gandhi as Joelle Cabral RN RN iw Smirch, Kamila, RN RN ss Corrections: (The following items were deleted from the chart) 10:57 10:30 Reassessment: Patient appears in no apparent distress at this time. Patient iw and/or family updated on plan of care and expected duration. Pain level reassessed. Patient is alert, oriented x 3, equal unlabored respirations, skin warm/dry/pink. pt requesting tylenol for pain and sprite, given now iw
--- NOTE | 2019-03-04 11:23 | RAD REPORT ---
EXAM DESCRIPTION: USExtrem Venous W Compress Bil03/04/2019 11:00 am CLINICAL HISTORY: Bilateral leg pain COMPARISON: none FINDINGS: The common femoral, superficial femoral, popliteal and posterior tibial veins bilaterally are compressible and demonstrate augmentation. Doppler demonstrates good flow. IMPRESSION: No evidence of deep venous thrombosis involving either lower extremity.
== END 2019-03-04 11:25 | disposition home or self-care (01) ==
LOC: ER 09:31
DX: M79.605 Pain in left leg (principal); M79.604 Pain in right leg; Z88.0 Allergy status to penicillin; F17.210 Nicotine dependence, cigarettes, uncomplicated
CPT/HCPCS: 93970; 99283

== ENCOUNTER 2019-03-09 18:38 | Emergency (ER) | payer OTHER ==
--- OUTSIDE RECORDS SUMMARY | 2019-03-09 18:40 | XMS REPORT ---
:1985 [facility] [address] [place] [address] Care Team Providers Name Role Phone Unavailable Unavailable Unavailable Problems This patient has no known problems. Allergies, Adverse Reactions, Alerts This patient has no known allergies or adverse reactions. Medications This patient has no known medications.
[2019-03-09 19:40] LABS: Hematocrit 30.8 % (36.0-45.0); RBC Red Blood Cell Count 3.38 M/uL (3.86-4.86)
[2019-03-09 19:41] LABS: Absolute Lymphocytes (CBC) 3.5 K/uL (0.7-4.9); Basophils % 0.5 % (0-1.3); Lymphocytes % 27.7 % (15.3-44.8); MPV 9.2 fL (7.6-11.3)
[2019-03-09 19:52] LABS: Protime INR 0.96
--- NOTE | 2019-03-09 19:52 | ER ---
Nurse's Notes [facility] Name: Mikayla Torrez Age: 33 yrs Sex: Female : 1985 Arrival Date: 03/09/2019 Time: 18:47 Bed 20 Private MD: Diagnosis: Epilepsy and recurrent seizures; related conditions, unspecified, second trimester;Placenta previa specified as without hemorrhage, second trimester;Hypokalemia Presentation: 03/09 18:48 Presenting complaint: Patient states: "I was eating dinner and the next thing I know [facility] is there asking questions and my said I had a seizure." Pt 5 months , hx of seizures, currently not taking any anti-seizure medication, reports super-pubic abdominal pain rated 7/10, "not cramping, just hurts.". Transition of care: patient was not received from another setting of care. Onset of symptoms was March 09, 2019. Risk Assessment: Do you want to hurt yourself or someone else? Patient reports no desire to harm self or others. Initial Sepsis Screen: Does the patient meet any 2 criteria? No. Patient's initial sepsis screen is negative. Does the patient have a suspected source of infection? No. Patient's initial sepsis screen is negative. Care prior to arrival: None. 18:48 Method Of Arrival: EMS: [facility] 18:48 Acuity: MARY 2 jl7 Triage Assessment: 18:50 General: Appears in no apparent distress. uncomfortable, Behavior is calm, cooperative, jl7 appropriate for age. Pain: Complains of pain in suprapubic area Pain does not radiate. Pain currently is 7 out of 10 on a pain scale. Quality of pain is described as "It just hurts." Is continuous. EENT: No signs and/or symptoms were reported regarding the EENT system. Neuro: Level of Consciousness is awake, alert, obeys commands, Oriented to person, place, time, situation, Reports dizziness, headache in right parietal area. Cardiovascular: Heart tones present Patient's skin is warm and dry. Respiratory: Airway is patent Respiratory effort is even, unlabored, Respiratory pattern is regular, symmetrical. GI: No signs and/or symptoms were reported involving the gastrointestinal system. : Urine is clear. Derm: Skin is pink, warm \\T\\ dry. Musculoskeletal: No signs and/or symptoms reported regarding the musculoskeletal system. 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 - Social history:: Smoking status: Patient uses tobacco products, smokes one-half pack cigarettes per day. - Ebola Screening: : No symptoms or risks identified at this time. - Family history:: not pertinent. Screenin:55 Abuse screen: Denies threats or abuse. Denies injuries from another. Nutritional jl7 screening: No deficits noted. Tuberculosis screening: No symptoms or risk factors identified. 19:20 Fall Risk Ambulatory Aid- None/Bed Rest/Nurse Assist (0 pts). Gait- Normal/Bed cc3 Rest/Wheelchair (0 pts) Mental Status- Oriented to own ability (0 pts). Assessment: 18:55 General: See triage assessment. jl7 19:15 Reassessment: Patient appears in no apparent distress at this time. Patient and/or cc3 family updated on plan of care and expected duration. Pain level reassessed. Patient is alert, oriented x 3, equal unlabored respirations, skin warm/dry/pink. Received this female patient from morning shift ANTONIETTA Stubbs as a case of seizure still to be seen by provider. Patient denies pain at this time. General: Appears in no apparent distress. comfortable, Behavior is calm, cooperative, appropriate for age. Pain: Denies pain. Neuro: Level of Consciousness is awake, alert, obeys commands, Oriented to person, place, time, situation, Appropriate for age. Cardiovascular: Denies chest pain, Capillary refill < 3 seconds Patient's skin is warm and dry. Respiratory: Airway is patent Respiratory effort is even, unlabored, Respiratory pattern is regular, symmetrical. GI: Abdomen is round distended. : No signs and/or symptoms were reported regarding the genitourinary system. EENT: No signs and/or symptoms were reported regarding the EENT system. Derm: Skin is intact, is healthy with good turgor, Skin is pink, warm \\T\\ dry. normal, Skin temperature is warm. Musculoskeletal: Circulation, motion, and sensation intact. Range of motion: intact in all extremities. 20:40 Reassessment: Patient appears in no apparent distress at this time. Patient and/or cc3 family updated on plan of care and expected duration. Pain level reassessed. Patient is alert, oriented x 3, equal unlabored respirations, skin warm/dry/pink. Patient taken by identification technician to their department by wheelchair. Patient denies pain at this time. 21:04 Reassessment: Patient appears in no apparent distress at this time. Patient and/or cc3 family updated on plan of care and expected duration. Pain level reassessed. Patient is alert, oriented x 3, equal unlabored respirations, skin warm/dry/pink. Patient came back from ultrasound department, awaiting result. 21:10 Reassessment: Patient appears in no apparent distress at this time. Patient and/or cc3 family updated on plan of care and expected duration. Pain level reassessed. Patient is alert, oriented x 3, equal unlabored respirations, skin warm/dry/pink. Patient for transfer to [facility] report called and handed over to RN Henny Smith and said patient will be going to [facility]. Transfer form completed and signed by the patient herself. ED statement distribution clerk contacted [facility] for patient transport. Patient denies pain at this time. 21:57 Reassessment: Patient appears in no apparent distress at this time. Patient and/or cc3 family updated on plan of care and expected duration. Pain level reassessed. Patient is alert, oriented x 3, equal unlabored respirations, skin warm/dry/pink. [facility] came for transport. Patient left ER vitally stable by EMS stretcher. No valuables left in the patient's room. Patient denies pain at this time. Patient states feeling better. Patient states symptoms have improved. Vital Signs: 18:55 BP 114 / 60; Pulse 85; Resp 16 S; Pulse Ox 100% on R/A; Pain 7/10; jl7 19:11 Temp 98.9(O); jl7 19:30 BP 104 / 59; Pulse 78; Resp 19 S; Temp 98.6(O); Pulse Ox 98% on R/A; cc3 20:45 BP 104 / 63; Pulse 76; Resp 19 S; Pulse Ox 100% on R/A; cc3 21:00 BP 104 / 61; Pulse 81; Resp 20 S; Pulse Ox 99% on R/A; cc3 21:45 BP 105 / 61; Pulse 85; Resp 20 S; Temp 98.6(O); Pulse Ox 100% on R/A; cc3 Vitals: 20:00 Heart Tones 146. cc3 ED Course: 18:47 Patient arrived in ED. jl7 18:54 Triage completed. jl7 18:55 Arm band placed on right wrist. jl7 18:55 Patient has correct armband on for positive identification. Placed in gown. Bed in low jl7 position. Call light in reach. Side rails up X2. Pulse ox on. NIBP on. Warm blanket given. 19:25 Initial lab(s) drawn, by de, sent to lab. Inserted saline lock: 20 gauge in right aj1 antecubital area, using aseptic technique. Blood collected. 19:26 Miles Shah MD is Attending Physician. [facility] 19:58 Alia Chen is Primary Nurse. cc3 21:07 US OB Limited In Process Unspecified. EDMS 21:57 No provider procedures requiring assistance completed. Patient transferred, IV remains cc3 in place. Administered Medications: Discontinued: NS 0.9% with KCl 20 mEq/L 1000 ml IV at 125 ml/hr continuous 20:20 Drug: NS 0.9% 1000 ml Route: IV; Rate: 1 bolus; Site: right antecubital; cc3 21:45 Follow up: Response: No adverse reaction; IV Status: Completed infusion; IV Intake: cc3 1000ml 20:35 Drug: NS 0.9% with KCl 20 mEq/L 1000 ml Route: IV; Rate: 125 ml/hr; Site: right cc3 antecubital; 21:51 Follow up: Response: No adverse reaction; IV Status: Order to discontinue infusion; IV cc3 Intake: 125ml Intake: 21:45 IV: 1000ml; Total: 1000ml. cc3 21:51 IV: 125ml; Total: 1125ml. cc3 Outcome: 19:52 ER care complete, transfer ordered by . carolyn 21:57 Patient left the ED. cc3 21:57 Transferred by ground EMS Transfer form completed. Note: [facility] 21:57 Condition: stable 21:57 Instructed on the need for transfer, Demonstrated understanding of instructions. Signatures: Dispatcher [employer] Olive Tran RN RN aj1 Miles Shah MD MD cha Leal, Jahala, RN RN jl7 Alia Chen 3 Corrections: (The following items were deleted from the chart) 22:42 20:18 Reassessment: Patient appears in no apparent distress at this time. Patient cc3 and/or family updated on plan of care and expected duration. Pain level reassessed. Patient is alert, oriented x 3, equal unlabored respirations, skin warm/dry/pink. cc3 22:43 21:04 Reassessment: Patient came back from ultrasound department, awaiting result. [facility] 22:47 21:10 Reassessment: Patient appears in no apparent distress at this time. Patient cc3 and/or family updated on plan of care and expected duration. Pain level reassessed. Patient is alert, oriented x 3, equal unlabored respirations, skin warm/dry/pink. Patient for transfer to [facility] report called and handed over to ANTONIETTA Smith. Transfer form completed and signed by the patient herself. ED statement distribution clerk contacted ground EMS for patient transport. Patient denies pain at this time. 3
--- NOTE | 2019-03-09 19:52 | EDPHYS ---
Physician Documentation [facility] Name: Mikayla Torrez Age: 33 yrs Sex: Female : 1985 Arrival Date: 03/09/2019 Time: 18:47 Bed 20 Private MD: ED Physician Miles Shah HPI: 03/09 19:47 This 33 yrs old Female presents to ER via EMS with complaints of Dizziness. carolyn 19:47 The patient presents with dizziness. carolyn 19:48 Onset: The symptoms/episode began/occurred just prior to arrival. Context: occurred at [facility] home. Modifying factors: The symptoms are alleviated by nothing, the symptoms are aggravated by nothing. Associated signs and symptoms: The patient has no apparent associated signs or symptoms. The patient presents after having a single isolated seizure, that lasted 1 minute(s). Character of seizure(s): Loss of consciousness: the patient experienced loss of consciousness, Motor activity: generalized, Incontinence: none, Apnea: the patient did not experience apnea, Circulation: the patient did not experience evidence of pulse disturbance. Seizure onset: the onset is not known. Context: the seizure(s) was witnessed, by no one. Seizure Hx: Cause: unknown, Last seizure: The patient's last seizure was approximately 3 week(s) ago. 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 - Social history:: Smoking status: Patient uses tobacco products, smokes one-half pack cigarettes per day. - Ebola Screening: : No symptoms or risks identified at this time. - Family history:: not pertinent. ROS: 19:48 Constitutional: Negative for fever, chills, and weight loss, Eyes: Negative for injury, carolyn pain, redness, and discharge, ENT: Negative for injury, pain, and discharge, Neck: Negative for injury, pain, and swelling, Cardiovascular: Negative for chest pain, palpitations, and edema, Respiratory: Negative for shortness of breath, cough, wheezing, and pleuritic chest pain, Back: Negative for injury and pain, : Negative for injury, bleeding, discharge, and swelling, MS/Extremity: Negative for injury and deformity, Skin: Negative for injury, rash, and discoloration, Psych: Negative for depression, anxiety, suicide ideation, homicidal ideation, and hallucinations, Allergy/Immunology: Negative for hives, rash, and allergies, Endocrine: Negative for neck swelling, polydipsia, polyuria, polyphagia, and marked weight changes, Hematologic/Lymphatic: Negative for swollen nodes, abnormal bleeding, and unusual bruising. 19:48 Abdomen/GI: Positive for abdominal distension, of the right lower quadrant and left lower quadrant. 19:48 Neuro: Positive for seizure activity. Exam: 19:48 Constitutional: This is a well developed, well nourished patient who is awake, alert, carolyn and in no acute distress. Head/Face: Normocephalic, atraumatic. Eyes: Pupils equal round and reactive to light, extra-ocular motions intact. Lids and lashes normal. Conjunctiva and sclera are non-icteric and not injected. Cornea within normal limits. Periorbital areas with no swelling, redness, or edema. ENT: Nares patent. No nasal discharge, no septal abnormalities noted. Tympanic membranes are normal and external auditory canals are clear. Oropharynx with no redness, swelling, or masses, exudates, or evidence of obstruction, uvula midline. Mucous membranes moist. Neck: Trachea midline, no thyromegaly or masses palpated, and no cervical lymphadenopathy. Supple, full range of motion without nuchal rigidity, or vertebral point tenderness. No Meningismus. Chest/axilla: Normal chest wall appearance and motion. Nontender with no deformity. No lesions are appreciated. Cardiovascular: Regular rate and rhythm with a normal S1 and S2. No gallops, murmurs, or rubs. Normal PMI, no JVD. No pulse deficits. Respiratory: Lungs have equal breath sounds bilaterally, clear to auscultation and percussion. No rales, rhonchi or wheezes noted. No increased work of breathing, no retractions or nasal flaring. Abdomen/GI: Soft, non-tender, with normal bowel sounds. No distension or tympany. No guarding or rebound. No evidence of tenderness throughout. Back: No spinal tenderness. No costovertebral tenderness. Full range of motion. Skin: Warm, dry with normal turgor. Normal color with no rashes, no lesions, and no evidence of cellulitis. MS/ Extremity: Pulses equal, no cyanosis. Neurovascular intact. Full, normal range of motion. Psych: Awake, alert, with orientation to person, place and time. Behavior, mood, and affect are within normal limits. 19:48 Neuro: Orientation: is normal, appropriate for stated age, no acute changes, Mentation: is normal, appropriate for stated age, no acute changes, Memory: is normal, appropriate for stated age, no acute changes, Cranial nerves: grossly normal, is grossly normal based on the patient's age, no acute changes, Cerebellar function: is grossly normal, is grossly normal based on the patient's age, no acute changes, Deep tendon reflexes are 2+ (normal) in the bilateral brachioradialis, bicep, tricep and patellar and Achilles tendons, seizure activity, is not displayed by the patient. Vital Signs: 18:55 BP 114 / 60; Pulse 85; Resp 16 S; Pulse Ox 100% on R/A; Pain 7/10; jl7 19:11 Temp 98.9(O); jl7 19:30 BP 104 / 59; Pulse 78; Resp 19 S; Temp 98.6(O); Pulse Ox 98% on R/A; cc3 20:45 BP 104 / 63; Pulse 76; Resp 19 S; Pulse Ox 100% on R/A; cc3 21:00 BP 104 / 61; Pulse 81; Resp 20 S; Pulse Ox 99% on R/A; cc3 21:45 BP 105 / 61; Pulse 85; Resp 20 S; Temp 98.6(O); Pulse Ox 100% on R/A; cc3 MDM: 19:26 Patient medically screened. [facility] 21:51 Data reviewed: vital signs, nurses notes, lab test result(s), radiologic studies, carolyn ultrasound. 03/09 19:16 Order name: Acetaminophen; Complete Time: 20:08 [facility] 03/09 19:16 Order name: Basic Metabolic Panel; Complete Time: 20:08 [facility] 03/09 19:16 Order name: CBC with Diff; Complete Time: 20:08 [facility] 03/09 19:16 Order name: ETOH Level; Complete Time: 20:08 [facility] 03/09 19:16 Order name: Hepatic Function; Complete Time: 20:08 [facility] 03/09 19:16 Order name: PT-INR; Complete Time: 20:08 [facility] 03/09 19:16 Order name: Ptt, Activated; Complete Time: 20:08 [facility] 03/09 19:16 Order name: Salicylate; Complete Time: 20:08 [facility] 03/09 19:16 Order name: Urine Drug Screen; Complete Time: 21:51 [facility] 03/09 19:47 Order name: Abo/rh Typing; Complete Time: 21:51 [facility] 03/09 19:52 Order name: US OB Limited [facility] 03/09 20:02 Order name: Urine Dipstick--Ancillary (enter results); Complete Time: 20:13 [facility] 03/09 20:02 Order name: Urine --Ancillary (enter results); Complete Time: 20:13 [facility] 03/09 19:16 Order name: EKG; Complete Time: 19:17 [facility] 03/09 19:16 Order name: EKG - Nurse/Tech; Complete Time: 20:02 [facility] 03/09 19:16 Order name: IV Saline Lock; Complete Time: 19:40 [facility] 03/09 19:16 Order name: Labs collected and sent; Complete Time: 19:40 [facility] 03/09 19:16 Order name: Urine Dipstick-Ancillary (obtain specimen); Complete Time: 20:09 [facility] 03/09 19:47 Order name: FHT's; Complete Time: 20:31 [facility] 03/09 19:47 Order name: NPO; Complete Time: 20:09 [facility] 03/09 19:47 Order name: Seizure Precautions; Complete Time: 19:53 [facility] 03/09 21:51 Order name: PO challenge: po juice; Complete Time: 21:53 [facility] Administered Medications: Discontinued: NS 0.9% with KCl 20 mEq/L 1000 ml IV at 125 ml/hr continuous 20:20 Drug: NS 0.9% 1000 ml Route: IV; Rate: 1 bolus; Site: right antecubital; cc3 21:45 Follow up: Response: No adverse reaction; IV Status: Completed infusion; IV Intake: cc3 1000ml 20:35 Drug: NS 0.9% with KCl 20 mEq/L 1000 ml Route: IV; Rate: 125 ml/hr; Site: right cc3 antecubital; 21:51 Follow up: Response: No adverse reaction; IV Status: Order to discontinue infusion; IV cc3 Intake: 125ml Disposition: 03/09/19 19:52 Transfer ordered to [facility]. Diagnosis are Epilepsy and recurrent seizures, related conditions, unspecified, second trimester, Placenta previa specified as without hemorrhage, second trimester, Hypokalemia. - Reason for transfer: Higher level of care. - Accepting physician is to [facility]. - Condition is Fair. - Problem is new. - Symptoms have improved. Signatures: Dispatcher [employer] EDOlive hCua, RN RN aj1 Miles Shah MD MD cha Leal, Jahala RN RN jl7 Alia Chen cc3 Corrections: (The following items were deleted from the chart) 21:52 19:52 03/09/2019 19:52 Transfer ordered to [facility]. Diagnosis is Epilepsy and carolyn recurrent seizures; related conditions, unspecified, second trimester. Reason for transfer: Higher level of care. Accepting physician is to [facility]. Condition is Fair. Problem is new. Symptoms have improved. carolyn 21:57 21:52 03/09/2019 19:52 Transfer ordered to [facility]. Diagnosis is Epilepsy and cc3 recurrent seizures; related conditions, unspecified, second trimester; Placenta previa specified as without hemorrhage, second trimester; Hypokalemia. Reason for transfer: Higher level of care. Accepting physician is to [facility]. Condition is Fair. Problem is new. Symptoms have improved. carolyn
[2019-03-09 20:02] LABS: ALT/SGPT 13 U/L (12-78); AST/SGOT 10 U/L (15-37); Albumin 2.9 g/dL (3.4-5.0); Alkaline Phosphatase 45 U/L (45-117); BUN Blood Urea Nitrogen 4 mg/dL (7-18); Bicarbonate 23 mmol/L (21-32); Bilirubin Direct < 0.1 mg/dL (0-0.2); Bilirubin Total 0.2 mg/dL (0.2-1.0); Glucose Level 90 mg/dL (74-106); Potassium 3.4 mmol/L (3.5-5.1); Protein, Total 6.7 g/dL (6.4-8.2); Sodium Level 143 mmol/L (136-145)
[2019-03-09 20:05] LABS: Urine Blood NEGATIVE (NEG); Urine Glucose NEGATIVE (NEG); Urine Protein NEGATIVE (NEG)
[2019-03-09] MEDS ORDERED: NA CHLORIDE 0.9% 1,000 ML ONE (20:26)
[2019-03-09 20:27] LABS: Barbiturates NEGATIVE (NEGATIVE); Benzodiazepines NEGATIVE (NEGATIVE); Cocaine NEGATIVE (NEGATIVE); METHAMPHETAM NEGATIVE (NEGATIVE); Methadone NEGATIVE (NEGATIVE); Opiates NEGATIVE (NEGATIVE); Phencyclidine NEGATIVE (NEGATIVE); THC Cannibis NEGATIVE (NEGATIVE)
[2019-03-09] MEDS ORDERED: NS KCL 20MEQ 1,000 ML IV ONE (20:51)
--- NOTE | 2019-03-10 07:36 | EKG ---
Test Date: 2019-03-09 Test Time: 19:48:37 Sample Clerk: CHAKAT MEASUREMENT RESULTS: Intervals: Rate: 76 MS: 160 QRSD: 80 QT: 378 QTc: 425 [place]: P: 16 MS: 160 QRS: 65 T: 34 INTERPRETIVE STATEMENTS: Normal sinus rhythm Normal ECG Compared to ECG 02/11/2019 19:09:15 No significant changes Electronically Signed On 03-10-19 07:35:14 CDT by Michael Ng
--- NOTE | 2019-03-10 08:27 | RAD REPORT ---
EXAM DESCRIPTION: US - OB Limited - 03/09/2019 9:06 pm CLINICAL HISTORY: , seizure COMPARISON: January 29, 2019 FINDINGS: Limited transabdominal OB sonography performed. Complete placenta previa is present. No abruption or marginal hematoma. As imaged the cervical canal is closed. This is a limited assessment. A 4 x 6 millimeter choroid plexus cysts is identified on the right. body and limb measurements were obtained. Findings are recorded in the PACs images. Estimated g estational age is 19 weeks 1 day. Calculated JOJO is 08/02/2019. These findings show normal interval g rowth since January 29 imaging. Heart rate was 148 BPM. No gross anatomic abnormality otherwise noted. IMPRESSION: Single 19 week 1 day IUP. Calculated JOJO is 08/02/2019. This shows normal interval growt h since January 29 imaging. Normal heart rate of 148 BPM. No gross anatomic abnormality. Complete placenta previa. No acute placental finding.
== END 2019-03-09 21:57 | disposition short-term general hospital (02) ==
LOC: ER 18:38
DX: O26.92 Pregnancy related conditions, unspecified, second trimester (principal); R42 Dizziness and giddiness; Z3A.19 19 weeks gestation of pregnancy; Z88.0 Allergy status to penicillin
CPT/HCPCS: 36415; 76815; 80048; 80076; 80307; 80320; 80329; 81003; 81025; 85025; 85610; 85730; 86900; 86901; 93005; J7030

== ENCOUNTER 2019-03-25 22:26 | Emergency (ER) | payer OTHER ==
--- OUTSIDE RECORDS SUMMARY | 2019-03-25 22:28 | XMS REPORT ---
:1985 [facility] [address] [place] [address] Care Team Providers Name Role Phone Unavailable Unavailable Unavailable Problems This patient has no known problems. Allergies, Adverse Reactions, Alerts This patient has no known allergies or adverse reactions. Medications This patient has no known medications.
--- OUTSIDE RECORDS SUMMARY | 2019-03-25 22:28 | XMS REPORT | Summary of Care ---
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 Halie GARZA [address] [place] [address] (Routine) Status Reason Specialty Diagnoses / Referred By Referred To Procedures Contact Contact New Request EEG Diagnoses Seizure disorder [facility] Electroencephalogram (EEG) - Duration of test: 20-60 mins Erinn Vargas [address] [place] [id number] (Routine) Status Reason Specialty Diagnoses / Referred By Referred To Procedures Contact Contact New Request EEG Diagnoses Seizure disorder [facility] Electroencephalogram (EEG) - Duration of test: 20-60 mins Alicia Plasencia [address] [place] [phone] (Routine) Status Reason Specialty Diagnoses / Referred By Referred To Procedures Contact Contact Closed Maternal Procedures [facility] CONSULT MATERNAL Erinn Vargas MEDICINE [address] [facility] [address] [address] (Routine) Status Reason Specialty Diagnoses / Referred By Referred To Procedures Contact Contact Closed Maternal Procedures [facility] CONSULT MATERNAL Erinn Vargas MEDICINE [address] [facility] [id number] [place] [phone] Reason for Visit Auth/Cert Status Reason Specialty Diagnoses / Referred By Contact Referred To Contact Procedures Obstetrics Diagnoses epilpsy [address] [place] [phone] Encounter Details Date Type Department Care Team Description 03/09/2019 - Hospital Encounter Obstetrics and Ogden, Angel 03/11/2019 Gynecology (J10C) [id number] [place] [phone] Allergies Active Allergy Reactions Severity Noted Date Comments Penicillin Hives 03/14/2016 documented as of this encounter (statuses as of 03/11/2019) Medications Medication Sig Dispensed Refills Start Date End Date Status famotidine 20 mg Take 1 tablet 20 tablet 0 02/26/2017 Active tablet by mouth 2 (two) times daily. levETIRAcetam 500 Take 1 tablet 60 tablet 6 03/11/2019 Active mg by mouth 2 tabletIndications: (two) times Seizure disorder daily. foLIC acid 1 mg Take 4 120 tablet 5 03/12/2019 Active tabletIndications: tablets by Seizure disorder mouth daily. ferrous sulfate 325 Take 1 tablet 120 tablet 3 03/11/2019 Active mg (65 mg iron) by mouth 2 tabletIndications: (two) times Seizure disorder daily. ibuprofen 800 mg Take 1 tablet 30 tablet 0 02/26/2017 03/11/2019 Discontinued tablet by mouth 3 (three) times daily with meals. sucralfate 1 gram Take 1 tablet 30 tablet 0 02/26/2017 03/11/2019 Discontinued tablet by mouth before meals and at bedtime. traMADOL 50 mg Take 1 tablet 8 tablet 0 12/21/2017 03/11/2019 Discontinued tablet by mouth every 6 (six) hours as needed for Pain (scale 7-10). documented as of this encounter (statuses as of 03/11/2019) Active Problems Problem Noted Date 03/10/2019 Previous section 03/10/2019 Seizure disorder 03/10/2019 documented as of this encounter (statuses as of 03/11/2019) Resolved Problems Problem Noted Date Resolved Date Obesity (BMI 30-39.9) 02/02/2017 03/10/2019 Pyelonephritis 03/14/2016 03/10/2019 documented as of this encounter (statuses as of 03/11/2019) Immunizations Name Administration Dates Next Due Pneumococcal Polysaccharide, PPSV23 (PNEUMOVAX) 03/15/2016 documented as of this encounter Social History Tobacco Use Types Packs/Day Years Used Date Current Every Day Smoker 0.25 20 Smokeless Tobacco: Never Used Alcohol Use Drinks/Week oz/Week Comments No 0 Standard drinks or equivalent 0.0 Sex Assigned at Date Recorded Not on file Job Start Date Occupation Industry Not on file Not on file Not on file Travel History Travel Start Travel End No recent travel history available. documented as of this encounter Last Filed Vital Signs Vital Sign Reading Time Taken Comments Blood Pressure 102/63 03/11/2019 4:00 PM CDT Pulse 75 03/11/2019 4:00 PM CDT Temperature 36.7 C (98.1 F) 03/11/2019 4:00 PM CDT Respiratory Rate 18 03/11/2019 4:00 PM CDT Oxygen Saturation 100% 03/11/2019 4:00 PM CDT Inhaled Oxygen Concentration - - Weight 82.1 kg (181 lb 1 oz) 03/10/2019 12:16 AM CDT Height 160 cm (5' 3") 03/10/2019 12:16 AM CDT Body Mass Index 32.07 03/10/2019 12:16 AM CDT documented in this encounter Discharge Instructions AttachmentsThe following attachments cannot be sent through Care Everywhere.Seizure, Safety During A: Epilepsy ([place])Seizure, Recurrent (Adult ) ([place]),Adapting to: Second Trimester ([place]): Your Second Trimester Changes ([place])documented in this encounter Progress Notes Mel Morris MD - 03/11/2019 4:06 PM CDTPatient recently back from [facility]. Discussed discharge and f/u in the [facility] clinic on 04/01. Will send Susanara to patient's local pharmacy. Patient shared genetic screening results on her phone. Photo take of it - below (can be found in 'Media' tab). Mel Morris MD OIL AND GAS SPECIALIST Resident Physician Annie Germain RN - 03/11/2019 1:20 PM CDTI, Angel Ogden MD, after reviewing this case with the Diathermy Equipment Repairer, I concur this case is appropriate for observation admission. The change to observation admission is based on the level of care this patient is receiving, medical necessity, risks associated and the expected duration of stay. The observation admission order has been entered. Annie Carranza RN, BSN [employer] Clerk[facility] [phone] Associated attestation - Angel Ogden - 03/11/2019 4:27 PM CDTAgree with note.Mel Morris MD - 03/11/2019 6:27 AM CDT ANTEPARTUM PROGRESS NOTE Subjective: Patient has no complaints. She denies vaginal bleeding, denies leakage of fluid , denies contractions. Endorses normal movement. Objective: Vitals: Temp: [36.5 C (97.7 F)-37.6 C (99.7 F)] Pulse: [75-80] Resp: [17-18] BP: (94-111)/(51-56) VITALS: Patient Vitals for the past 24 hrs: BP Temp Temp src Pulse Resp SpO2 03/11/19 0400 94/51 36.5 C (97.7 F) Oral 79 18 97 % 03/11/19 0000 100/56 37.1 C (98.8 F) Oral 75 17 99 % 03/10/19 2000 102/52 36.6 C (97.9 F) Oral 78 18 100 % 03/10/19 1600 Oral 03/10/19 1200 111/55 36.8 C (98.2 F) Oral 77 18 98 % 03/10/19 0800 97/52 37.6 C (99.7 F) Oral 80 17 99 % Physical Exam: General: patient alert and in no acute distress HEENT: symmetric, negative for masses Lungs: unlabored breathing Cardiology: peripheral pulses intact and regular Abdomen: Gravid and soft, non-tender, non-distended, no abnormal masses palpated Extremities: no clubbing, cyanosis, or edema Neuro: patient moving all extremities, no facial droop : deferred Medications: Current Facility-Administered Medications Medication Dose Route Frequency Last Rate Last Dose acetaminophen (TYLENOL) tablet 650 mg 650 mg Oral Q6HPRN alum-mag hydroxide-simeth (MAALOX PLUS / MAG-AL PLUS) 200-200-20 mg/5 mL suspension 30 mL 30 mLOral Q6HPRN ascorbic acid (vitamin C) (VITAMIN C) tablet 500 mg 500 mg Oral DAILY 500 mg at 03/10/19 0849 qxcrsmnpdt-sxtiqaomafyaq-dykg (ESGIC) 50-325-40 mg tablet 1 tablet 1 tablet Oral Q6HPRN 1 tablet at 03/10/19 2315 docusate calcium (SURFAK) capsule 240 mg 240 mg Oral QHSPRN ferrous sulfate tablet 325 mg 325 mg Oral TID MEALS 325 mg at 03/10/19 1657 foLIC acid (FOLATE) tablet 4 mg 4 mg Oral DAILY 4 mg at 03/10/19 0951 levETIRAcetam (KEPPRA) tablet 500 mg 500 mg Oral BID 500 mg at 03/10/19 1959 magnesium hydroxide (MILK OF MAGNESIA) 400 mg/5 mL suspension 30 mL 30 mL Oral QDAILYPRN vitamin w/FA (PRENATABS RX) tablet 1 tablet 1 tablet Oral DAILY 1 tablet at 849 Labs: reviewed ASSESSMENT AND PLAN Mikayla Torrez is a 33 year old at 19w6d by who is a direct admit from [facility] for seizure. Hospital Day: 3 Seizure disorder - diagnosed at 4yo. Previously controlled on Depakote, unknown dose - discontinued Depakote when finding out she was ~8w - Grand Mal seizure lasting 30 seconds with postictal phase on 03/09/2019 - last Grand Mal seizure 3-4 weeks prior to current episode - s/p inpatient neurology consult on 03/10 - Plan: start Keppra 500mg PO BID, Folate supplementation Previous x2 - while living in [place], [place] - G4: first due to unknown complications - G5: second due to NRFHT at 30 wks - ROR signed. Awaiting records - patient desires repeat Antepartum course reviewed - care at [facility], records requested - patient reports no issues this - HIV negative, Syphilis NR, VZV Imm, Rubella Eq, HepB neg, B+/IAT neg Fetus - Presentation on admission: variable - EFW: 283g by bedside ultrasound by R2 - detailed MFM scan scheduled for 03/11 Mel Morris MD Associated attestation - Vanessa Whitney MD - 03/11/2019 12:51 PM CDTI personally saw and examined the patient on 03/11/[address] Morris ' resident note aswritten. I actively participated in the decision-making process. Please, see the resident's note foradditional details.documented in this encounter Plan of Treatment Date Type Specialty Care Team Description 04/01/2019 Routine Visit OB Satellites Gina Blackburn, [facility] [address] [place], [place] [id number] Name Type Priority Associated Diagnoses Date/Time Electroencephalogram (EEG) - Duration EEG Routine Seizure disorder 2018 of test: 20-60 mins Health Maintenance Due Date Last Done Comments DTaP,Tdap,and Td Vaccines (1 - Tdap) 2003 PAP SMEAR 2005 INFLUENZA VACCINE 04/10/2019 PNEUMOCOCCAL 0-64 YEARS COMBINED SERIES Completed 03/15/2016 documented as of this encounter Procedures Procedure Name Priority Date/Time Associated Comments Diagnosis SECOND AND THIRD Routine 03/11/2019 1:57 TRIMESTER ULTRASOUND PM CDT SECOND AND THIRD Routine 03/11/2019 1:47 TRIMESTER ULTRASOUND PM CDT ABORH CONFIRMATION Routine 03/10/2019 1:45 Results for this AM CDT procedure are in the results section. TYPE AND SCREEN Routine 03/10/2019 1:02 Results for this AM CDT procedure are in the results section. G[facility] ONLY - SYPHILIS Routine 03/10/2019 1:00 Results for this IGG/IGM AM CDT procedure are in the results section. HIV 1/2 AG-AB WITH Add-on 03/10/2019 1:00 Results for this REFLEX AM CDT procedure are in the results section. CBC WITH DIFFERENTIAL Routine 03/10/2019 1:00 Results for this AM CDT procedure are in the results section. HEPATITIS B SURFACE Routine 03/10/2019 1:00 Results for this ANTIGEN AM CDT procedure are in the results section. VZV ANTIBODY SCREEN Add-on 03/10/2019 1:00 Results for this AM CDT procedure are in the results section. RUBELLA SCREEN IGG Add-on 03/10/2019 1:00 Results for this AM CDT procedure are in the results section. CBC WITH DIFF Routine 03/10/2019 1:00 Results for this AM CDT procedure are in the results section. documented in this encounter Results SECOND AND THIRD TRIMESTER ULTRASOUND (03/11/2019 1:57 PM CDT) Specimen SECOND AND THIRD TRIMESTER ULTRASOUND (03/11/2019 1:47 PM CDT) Specimen ABORH CONFIRMATION (03/10/2019 1:45 AM CDT) ABO & RH B Positive LAB Comment: Performed at [facility] Laboratory Services - [facility] Blood [place] [address] Toll Free: [phone] CLIA No. [id number] Specimen Performing Organization Address City/State/[facility] Phone Number BLD LAB Type and Screen - The Type and Screen expires at midnight on the 3rd day after it was drawn. A current Type and Screen is required when RBCs are requested. For all other blood products, a Type and Screen performed during the current hospitalizati... (03/10/2019 1:02 AM CDT) ABO & RH B POSITIVE LAB Comment: Performed at [facility] Laboratory Services - [facility] [address] [place] [address] Toll Free: [phone] CLIA No. [id number] IAT Negative LAB Comment: Performed at [facility] Laboratory Services - [facility] [address] [place] [address] Toll Free: [phone] CLIA No. [id number] Specimen Blood Performing Organization Address City/[facility] Cent[facility]ode Phone Number BLD LAB HIV 1/2 AG-AB WITH REFLEX (03/10/2019 1:00 AM CDT) HIV 1/2 Ag-Ab with Negative Negative [facility] Reflex SERVICES HIV Semi-quantitative 0.06 [facility] Specimen Blood - ARM, LEFT Narrative Performed At Non-reactive for HIV-1 antigen and HIV-1/HIV-2 [facility] SERVICES antibodies.No laboratory evidence of HIV infection.Repeat in 2-4 weeks if acute HIV infection is suspected. Performing Organization Address City/State/[facility] Centercode Phone Number [facility] CLIA: [id number], [address] [place] [phone] [facility] VZV ANTIBODY SCREEN (03/10/2019 1:00 AM CDT) Pathologist [facility] VZV IgG antibody Positive Negative [facility] Specimen Blood - ARM, LEFT Narrative Performed At Positive - Indicates the patient was exposed to VZV through [facility] infection or vaccination. Negative - Indicates the patient could be susceptible to VZV infection. Equivocal - A second specimen should be sent for testing. Performing Organization Address City/State/[facility] Centercosd Phone Number [facility] CLIA: [id number], [address] [place] [address] [phone] [facility] RUBELLA SCREEN IGG (03/10/2019 1:00 AM CDT) Rubella screen IgG Equivocal Negative [facility] Specimen Blood - ARM, LEFT Narrative Performed At Positive - Indicates the patient was exposed to Rubella [facility] through infection or vaccination. Negative - Indicates the patient could be susceptible to Rubella infection. Equivocal - A second specimen should be sent. Performing Organization Address City/State/[facility] Centercode Phone Number [facility] CLIA: [id number], [address] [place] [address] [facility] CBC WITH DIFFERENTIAL (03/10/2019 1:00 AM CDT) WBC 11.91 (H) 4.30 - 11.10 [facility] 10*3/L SERVICES RBC 3.26 (L) 3.93 - 5.25 [facility] 10*6/L SERVICES HGB 9.6 (L) 11.6 - 15.0 [facility] g/dL SERVICES HCT 30.1 (L) 35.7 - 45.2 % [facility] SERVICES MCV 92.3 80.6 - 95.5 fL [facility] SERVICES MCH 29.4 25.9 - 32.8 pg [facility] SERVICES MCHC 31.9 31.6 - 35.1 [facility] g/dL SERVICES RDW-SD 50.9 (H) 39.0 - 49.9 fL [facility] SERVICES RDW-CV 15.1 12.0 - 15.5 % [facility] SERVICES PLT 298 166 - 358 [facility] 10*3/L SERVICES MPV 10.4 9.5 - 12.9 fL [facility] SERVICES NRBC/100 WBC 0.0 0.0 - 10.0 /100 [facility] WBCs SERVICES NRBC x10^3 <0.01 10*3/L [facility] SERVICES GRAN MAT (NEUT) % 57.6 % [facility] IMM GRAN % 0.50 % [facility] LYMPH % 33.2 % [facility] MONO % 6.0 % [facility] EOS % 2.2 % [facility] BASO % 0.5 % [facility] GRAN MAT x10^3(ANC) 6.85 1.88 - 7.09 [facility] 10*3/uL SERVICES IMM GRAN x10^3 0.06 0.00 - 0.06 [facility] 10*3/uL SERVICES LYMPH x10^3 3.96 (H) 1.32 - 3.29 [facility] 10*3/uL SERVICES MONO x10^3 0.72 0.33 - 0.92 [facility] 10*3/uL SERVICES EOS x10^3 0.26 0.03 - 0.39 [facility] 10*3/uL SERVICES BASO x10^3 0.06 0.01 - 0.07 [facility] 10*3/uL SERVICES Specimen Blood - ARM, LEFT Performing Organization Address City/State/Zipcode Phone Number [facility] CLIA: [id number], [address] [place], [place] [address] [facility] ONLY - SYPHILIS IGG/IGM (03/10/2019 1:00 AM CDT) Syphilis IgG/IgM Non-reactive Non-reactive [facility] Specimen Blood - ARM, LEFT Narrative Performed At Non-reactive - No serologic evidence of T. pallidum [facility] infection. Cannot exclude incubating or early syphilis. Submit a second specimen in 2-4 weeks if syphilis is clinically suspected. Equivocal - Further testing to follow. Reactive - Further testing to follow. Performing Organization Address City/State/Zipcode Phone Number [facility] CLIA: [id number], [address] [place] [phone] [facility] Hepatitis B Surface Antigen (03/10/2019 1:00 AM CDT) HBsAg HEPATITIS B Negative [facility] SURFACE ANTIGEN SERVICES NEGATIVE HBsAg 0.05 [facility] Semi-Quantitative SERVICES Specimen Blood - ARM, LEFT Performing Organization Address City/State/Zipcode Phone Number [facility] CLIA: [id number], [address] [place] [phone] [facility] documented in this encounter Visit Diagnoses Diagnosis Seizure disorder - Primary Unspecified epilepsy without mention of intractable epilepsy 19 weeks gestation of state, incidental Previous section Other postprocedural status documented in this encounter Administered Medications Medication Order MAR Action Action Date Dose Rate Site acetaminophen (TYLENOL) tablet 650 mg 650 mg, Oral, Q6HPRN, Starting Thu03/10/19 at 1432, Until Discontinued, Routine , Pain (scale 4-6) alum-mag hydroxide-simeth (MAALOX PLUS / MAG-AL PLUS) 200-200-20 mg/5 mL suspension 30 mL 30 mL, Oral, Q6HPRN, Starting Thu03/09/19 at 2359, Until Discontinued, Routine , Indigestion ascorbic acid (vitamin C) (VITAMIN C) tablet Given 03/11/2019 7:37 AM CDT 500 mg 500 mg 500 mg, Oral, DAILY, First dose on Thu03/10/19 at 0900, Until Discontinued, Routine Given 03/10/2019 8:49 AM CDT 500 mg jusmcymbox-azkfhlqoaqsrp-hvlh (ESGIC) Given 03/11/2019 7:37 AM CDT 1 tablet 50-325-40 mg tablet 1 tablet 1 tablet, Oral, Q6HPRN, Starting Thu03/10/19 at 1432, Until Discontinued, Routine, Pain (scale 7-10) Given 03/10/2019 11:15 PM CDT 1 tablet Given 03/10/2019 4:57 PM CDT 1 tablet docusate calcium (SURFAK) capsule 240 mg 240 mg, Oral, QHSPRN, Starting Thu03/09/19 at 2359, Until Discontinued, Routine , Constipation ferrous sulfate tablet 325 mg Given 03/11/2019 4:16 PM CDT 325 mg 325 mg, Oral, TID MEALS, First dose on Thu03/10/19 at 0800, Until Discontinued, Routine Given 03/11/2019 7:38 AM CDT 325 mg Given 03/10/2019 4:57 PM CDT 325 mg foLIC acid (FOLATE) tablet 4 mg Given 03/11/2019 7:38 AM CDT 4 mg 4 mg, Oral, DAILY, First dose on Thu03/10/19 at 0930, Until Discontinued, Routine Given 03/10/2019 9:51 AM CDT 4 mg levETIRAcetam (KEPPRA) tablet 500 mg Given 03/11/2019 7:37 AM CDT 500 mg 500 mg, Oral, BID, First dose on Thu03/10/19 at 0045, Until Discontinued, Routine Given 03/10/2019 7:59 PM CDT 500 mg Given 03/10/2019 8:48 AM CDT 500 mg magnesium hydroxide (MILK OF MAGNESIA) 400 mg/5 mL suspension 30 mL 30 mL, Oral, QDAILYPRN, Starting Thu03/09/19 at 2359, Until Discontinued, Routine, Constipation vitamin w/FA (PRENATABS RX) Given 03/11/2019 7:37 AM CDT 1 tablet tablet 1 tablet 1 tablet, Oral, DAILY, First dose on Thu03/10/19 at 0900, Until Discontinued, Routine Given 03/10/2019 8:49 AM CDT 1 tablet Medication Order MAR Action Action Date Dose Rate Site acetaminophen (TYLENOL) tablet Given 03/10/2019 1:08 AM CDT 650 mg 650 mg 650 mg, Oral, ONCE, 1 dose, Thu03/10/19 at 0045, Routine wpnedrhcfc-rvmcddijrzexm-otff (ESGIC) Given 03/10/2019 9:52 AM CDT 2 tablets 50-325-40 mg tablet 2 tablet 2 tablet, Oral, ONCE, 1 dose, Joyce 8/1/19 at 1045, Routine orrnzibhhr-eptebrisvesiu-vfbi (ESGIC) Given 03/11/2019 4:16 PM CDT 2 tablets 50-325-40 mg tablet 2 tablet 2 tablet, Oral, ONCE, 1 dose, Thu03/11/19 at 1700, Routine proCHLORperazine (COMPAZINE) tablet 5 mg Given 03/10/2019 1:04 PM CDT 5 mg 5 mg, Oral, ONCE, 1 dose, Joyce 03/10/19 at 1215, Routine proCHLORperazine (COMPAZINE) tablet 5 mg Given 03/11/2019 8:39 AM CDT 5 mg 5 mg, Oral, ONCE, 1 dose, Thu03/11/19 at 0900, Routine proCHLORperazine (COMPAZINE) tablet 5 mg Given 03/11/2019 4:15 PM CDT 5 mg 5 mg, Oral, ONCE, 1 dose, Thu03/11/19 at 1700, Routine documented in this encounter Insurance Payer Benefit Plan / Subscriber ID Effective Phone Address Type Group Dates [employer] xxxxxxxxx 2019-[address] [place] [id number] [place] [address] (Home) [address] [place] [address] documented as of this encounter
--- OUTSIDE RECORDS SUMMARY | 2019-03-25 22:29 | XMS REPORT | Summary of Care ---
:1985 Author Organization [facility] Address [address] [place] [address] Care Team Providers Name Role Phone Pcp, Patient Does Not Have A Primary Care Provider Reason for Visit Reason Comments Appointment Encounter Details Date Type Department Care Team Description 03/15/2019 Telephone [facility] Women's Radha Pnea MD Appointment [facility] [place] [address] [place] [address] Floor [phone] [place] [address] [phone] Allergies Active Allergy Reactions Severity Noted Date Comments Penicillin Hives 03/14/2016 documented as of this encounter (statuses as of 03/15/2019) Medications Medication Sig Dispensed Refills Start Date End Date Status famotidine 20 mg tablet Take 1 tablet by 20 tablet 0 02/26/2017 Active mouth 2 (two) times daily. levETIRAcetam 500 mg Take 1 tablet by 60 tablet 6 03/11/2019 Active tabletIndications: mouth 2 (two) Seizure disorder times daily. foLIC acid 1 mg Take 4 tablets 120 tablet 5 03/12/2019 Active tabletIndications: by mouth daily. Seizure disorder ferrous sulfate 325 mg Take 1 tablet by 120 tablet 3 03/11/2019 Active (65 mg iron) mouth 2 (two) tabletIndications: times daily. Seizure disorder documented as of this encounter (statuses as of 03/15/2019) Active Problems Problem Noted Date 03/10/2019 Previous section 03/10/2019 Seizure disorder 03/10/2019 Estimated Date of Delivery Comments Yes 07/30/2019 Based on last menstrual period of 10/23/2018 (Exact Date) documented as of this encounter (statuses as of 03/15/2019) Resolved Problems Problem Noted Date Resolved Date Obesity (BMI 30-39.9) 02/02/2017 03/10/2019 Pyelonephritis 03/14/2016 03/10/2019 documented as of this encounter (statuses as of 03/15/2019) Immunizations Name Administration Dates Next Due Pneumococcal Polysaccharide, PPSV23 (PNEUMOVAX) 03/15/2016 documented as of this encounter Social History Tobacco Use Types Packs/Day Years Used Date Current Every Day Smoker 0.25 20 Smokeless Tobacco: Never Used Alcohol Use Drinks/Week oz/Week Comments No 0 Standard drinks or equivalent 0.0 Estimated Date of Delivery Comments Yes 07/30/2019 Based on last menstrual period of 10/23/2018 (Exact Date) Sex Assigned at Date Recorded Not on file Job Start Date Occupation Industry Not on file Not on file Not on file Travel History Travel Start Travel End No recent travel history available. documented as of this encounter Last Filed Vital Signs Not on filedocumented in this encounter Plan of Treatment Date Type Specialty Care Team Description 04/01/2019 Routine Visit [facility] Gian Blackburn, CNP [address] [place], [place] [id number] Health Maintenance Due Date Last Done Comments DTaP,Tdap,and Td Vaccines (1 - Tdap) 2003 PAP SMEAR 2005 INFLUENZA VACCINE 04/10/2019 PNEUMOCOCCAL 0-64 YEARS COMBINED SERIES Completed 03/15/2016 documented as of this encounter Results Not on filedocumented in this encounter Insurance Payer Benefit Plan / Subscriber ID Effective Phone Address Type Group Dates [employer] xxxxxxxxx 2019-Ricci [place] [id number] [place] [address] documented as of this encounter
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
--- OUTSIDE RECORDS SUMMARY | 2019-03-25 22:29 | XMS REPORT | Summary of Care ---
:1985 Author Organization [facility] - Health Address [address] [place] [address] Care Team Providers Name Role Phone Pcp, Patient Does Not Have A Primary Care Provider Encounter Details Date Type Department Care Team Description 03/23/2019 Orders Only [facility] Doctor Unassigned, No [address] [facility] [place] [address] [address] [place] [address] Allergies Active Allergy Reactions Severity Noted Date Comments Penicillin Hives 03/14/2016 documented as of this encounter (statuses as of 03/23/2019) Medications Medication Sig Dispensed Refills Start Date [...] as of this encounter (statuses as of 03/23/2019) Active Problems Problem Noted Date 03/10/2019 Previous section 03/10/2019 Seizure disorder 03/10/2019 Estimated Date of Delivery Comments Yes 07/30/2019 Based on last menstrual period of 10/23/2018 (Exact Date) documented as of this encounter (statuses as of 03/23/2019) Resolved Problems Problem Noted Date Resolved Date Obesity (BMI 30-39.9) 02/02/2017 03/10/2019 Pyelonephritis 03/14/2016 03/10/2019 documented as of this encounter (statuses as of 03/23/2019) Immunizations Name Administration Dates Next Due Pneumococcal [...] 04/01/2019 Routine Visit [facility] Satellites Gina Blackburn, WHCNP [address] [place] [address] [phone] Health Maintenance Due Date Last Done Comments DTaP,Tdap,and Td Vaccines (1 - Tdap) 2003 PAP SMEAR 2005 INFLUENZA VACCINE 04/10/2019 PNEUMOCOCCAL 0-64 YEARS COMBINED SERIES Completed 03/15/2016 documented as of this encounter Procedures Procedure Name Priority Date/Time Associated Diagnosis Comments EXTERNAL PROVIDER Routine 03/23/2019 12:01 AM CDT RECORDS documented in this encounter Results Not on filedocumented in this encounter Insurance Payer Benefit Plan / Subscriber ID Effective Phone Address Type Group Dates [employer] xxxxxxxxx 2019-[address] [place] [id number] [place] [address] documented as of this encounter
[2019-03-25] MEDS ORDERED: NA CHLORIDE 0.9% 1,000 ML ONE (22:40)
[2019-03-25 23:07] LABS: Urine Blood NEGATIVE (NEG); Urine Glucose NEGATIVE (NEG); Urine Protein NEGATIVE (NEG); Urine Specific Gravity >1.030 (1.005-1.030)
[2019-03-25 23:19] LABS: BUN Blood Urea Nitrogen 8 mg/dL (7-18); Bicarbonate 23 mmol/L (21-32); Glucose Level 84 mg/dL (74-106); Potassium 3.4 mmol/L (3.5-5.1); Sodium Level 142 mmol/L (136-145)
[2019-03-25 23:23] LABS: Urine Bacteria <20 /HPF (<20); Urine Culture Reflex Order NOT NEEDED; Urine RBC <5 /HPF (NONE SEEN)
[2019-03-25] MEDS ORDERED: POTASSIUM CL SA 10 MEQ TAB PO ONE (23:25)
--- NOTE | 2019-03-25 23:32 | ER ---
Nurse's Notes [facility] Name: Mikayla Torrez Age: 33 yrs Sex: Female : 1985 Arrival Date: 03/25/2019 Time: 22:30 Bed 17 Private MD: Diagnosis: Epilepsy and recurrent seizures Presentation: 03/25 22:30 Presenting complaint: EMS states: patient had a seizure lasted 3 minutes. post ictal rr5 when we arrived, missed her seizure medication today.complaining of headache. 22 weeks . 22:30 Transition of care: patient was not received from another setting of care. Onset of rr5 symptoms was March 25, 2019. Risk Assessment: Do you want to hurt yourself or someone else? Patient reports no desire to harm self or others. Initial Sepsis Screen: Does the patient meet any 2 criteria? No. Patient's initial sepsis screen is negative. Does the patient have a suspected source of infection? No. Patient's initial sepsis screen is negative. Care prior to arrival: None. 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 - Social history:: Smoking status: Patient uses tobacco products, 7 sticks per day, Patient/guardian denies using alcohol, street drugs. - Ebola Screening: : Patient negative for fever greater than or equal to 101.5 degrees Fahrenheit, and additional compatible Ebola Virus Disease symptoms Patient denies exposure to infectious person Patient denies travel to an Ebola-affected area in the 21 days before illness onset. Screenin:37 Abuse screen: Denies threats or abuse. Denies injuries from another. Nutritional rr5 screening: No deficits noted. Tuberculosis screening: No symptoms or risk factors identified. Fall Risk Secondary diagnosis (15 points) seizures, IV access (20 points). Total Moody Fall Scale indicates Low Risk Score (25-44 pts). Fall prevention measures have been instituted. Side Rails Up X 2 Placed close to Nursing Station Frequent Obs/Assesments occuring As available Patient and Family Educated on Fall Prevention Program and strategies. Assessment: 22:30 General: Appears in no apparent distress. comfortable, Behavior is calm, cooperative, rr5 appropriate for age. Pain: Complains of pain in head Pain does not radiate. Pain currently is 3 out of 10 on a pain scale. Quality of pain is described as aching, Pain began gradually, Is intermittent. Neuro: Level of Consciousness is awake, alert, obeys commands, Oriented to person, place, time, situation, Appropriate for age. Cardiovascular: Capillary refill < 3 seconds Patient's skin is warm and dry. Respiratory: Airway is patent Respiratory effort is even, unlabored, Respiratory pattern is regular, symmetrical. GI: No signs and/or symptoms were reported involving the gastrointestinal system. : No signs and/or symptoms were reported regarding the genitourinary system. EENT: No signs and/or symptoms were reported regarding the EENT system. Derm: Skin is pink, warm \T\ dry. Skin temperature is warm. Musculoskeletal: Circulation, motion, and sensation intact. Capillary refill < 3 seconds. 23:48 Reassessment: Patient appears in no apparent distress at this time. Patient is alert, rr5 oriented x 3, equal unlabored respirations, skin warm/dry/pink. discharge instruction given and explained to tar boiler, verbalized understanding. CN and food checkers and cashiers supervisor informed patient going to home to [facility]. Patient states symptoms have improved. Vital Signs: 22:30 BP 100 / 64; Pulse 80; Resp 19; Temp 99.2; Pulse Ox 100% ; Weight 83.91 kg; Height 5 rr5 ft. 3 in. (160.02 cm); 23:30 BP 99 / 62; Pulse 85; Resp 17; Pulse Ox 99% on R/A; rr5 22:30 Body Mass Index 32.77 (83.91 kg, 160.02 cm) rr5 Vitals: 22:41 Heart Tones 150s RLQ. rv Zakia Coma Score: 22:30 Eye Response: spontaneous(4). Verbal Response: oriented(5). Motor Response: obeys rr5 commands(6). Total: 15. 22:30 Eye Response: spontaneous(4). Verbal Response: oriented(5). Motor Response: obeys rr5 commands(6). Total: 15. 23:30 Eye Response: spontaneous(4). Verbal Response: oriented(5). Motor Response: obeys rr5 commands(6). Total: 15. ED Course: 22:30 Patient arrived in ED. rr5 22:33 Triage completed. rr5 22:34 Marianne Pham FNP-C is [facility]. kb 22:34 Karl Whittaker MD is Attending Physician. kb 22:35 Patient has correct armband on for positive identification. Bed in low position. Call rr5 light in reach. Side rails up X2. Seizure precautions initiated. 22:35 Pulse ox on. NIBP on. rr5 22:36 Arm band placed on. rr5 22:38 Dominick Nichols RN is Primary Nurse. rr5 22:50 No provider procedures requiring assistance completed. Inserted saline lock: 22 gauge rr5 in right forearm, using aseptic technique. Blood collected. 23:49 IV discontinued, intact, bleeding controlled, No redness/swelling at site. Pressure rr5 dressing applied. Administered Medications: 22:51 Drug: NS 0.9% 1000 ml Route: IV; Rate: 1000 ml; Site: right forearm; rr5 23:35 Follow up: Response: No adverse reaction; IV Status: Completed infusion; IV Intake: rr5 1000ml 23:27 Drug: Potassium Chloride 20 mEq Route: PO; rr5 23:51 Follow up: Response: Medication administered at discharge. rr5 Intake: 23:35 IV: 1000ml; Total: 1000ml. rr5 Outcome: 23:30 Discharge ordered by . kb 23:49 Discharged to [facility] rr5 23:49 Condition: stable 23:49 Discharge instructions given to patient, Instructed on discharge instructions, follow up and referral plans. Demonstrated understanding of instructions, follow-up care, medications. 23:51 Patient left the ED. rr5 Signatures: Marianne Pham FNP-C FNP-Ckb Vicente, Ronaldo, RN RN rv Dominick Nichols RN RN rr5
--- NOTE | 2019-03-25 23:32 | EDPHYS ---
Physician Documentation [facility] Name: Mikayla Torrez Age: 33 yrs Sex: Female : 1985 Arrival Date: 03/25/2019 Time: 22:30 Bed 17 Private MD: ED Physician Karl Whittaker HPI: 03/25 23:15 This 33 yrs old Female presents to ER via EMS with complaints of Seizure. kb 23:15 The patient presents after having a single isolated seizure, that lasted 3 minute(s). kb Character of seizure(s): Loss of consciousness: the patient experienced loss of consciousness, during seizure(s), Motor activity: generalized, shaking all over, Incontinence: none, Apnea: the patient did not experience apnea. Seizure onset: just prior to arrival. Context: the seizure(s) was witnessed, by family, , occurred at home, Contributing factors: missed recent doses of medications. 23:18 Seizure Hx: Original onset: longstanding. Associated injury: The patient did not suffer kb any apparent associated injury. EMS care: supplemental oxygen. Current symptoms: Currently, the patient is not experiencing any symptoms, the patient feels back to baseline, no decreased level of consciousness, no confusion, no dysphasia, no headache, no paralysis, no visual changes. The patient has experienced similar episodes in the past, chronically. The patient has not recently seen a physician. Pt reports she forgot to take her seizure medication today. States she feels like she normally does after a seizure. c/o mild headache only. 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 - Social history:: Smoking status: Patient uses tobacco products, 7 sticks per day, Patient/guardian denies using alcohol, street drugs. - Ebola Screening: : Patient negative for fever greater than or equal to 101.5 degrees Fahrenheit, and additional compatible Ebola Virus Disease symptoms Patient denies exposure to infectious person Patient denies travel to an Ebola-affected area in the 21 days before illness onset. ROS: 23:19 Constitutional: Negative for fever, chills, and weight loss, ENT: Negative for injury, kb pain, and discharge, Neck: Negative for injury, pain, and swelling, Cardiovascular: Negative for chest pain, palpitations, and edema, Respiratory: Negative for shortness of breath, cough, wheezing, and pleuritic chest pain, Abdomen/GI: Negative for abdominal pain, nausea, vomiting, diarrhea, and constipation, Back: Negative for injury and pain, MS/Extremity: Negative for injury and deformity, Skin: Negative for injury, rash, and discoloration. 23:19 Neuro: Positive for headache, seizure activity. Exam: 23:19 Constitutional: This is a well developed, well nourished patient who is awake, alert, kb and in no acute distress. Head/Face: Normocephalic, atraumatic. Neck: Trachea midline, no thyromegaly or masses palpated, and no cervical lymphadenopathy. Supple, full range of motion without nuchal rigidity, or vertebral point tenderness. No Meningismus. Chest/axilla: Normal chest wall appearance and motion. Nontender with no deformity. No lesions are appreciated. Cardiovascular: Regular rate and rhythm with a normal S1 and S2. No gallops, murmurs, or rubs. Normal PMI, no JVD. No pulse deficits. Respiratory: Lungs have equal breath sounds bilaterally, clear to auscultation and percussion. No rales, rhonchi or wheezes noted. No increased work of breathing, no retractions or nasal flaring. Abdomen/GI: Soft, non-tender, with normal bowel sounds. No distension or tympany. No guarding or rebound. No evidence of tenderness throughout. Back: No spinal tenderness. No costovertebral tenderness. Full range of motion. Skin: Warm, dry with normal turgor. Normal color with no rashes, no lesions, and no evidence of cellulitis. MS/ Extremity: Pulses equal, no cyanosis. Neurovascular intact. Full, normal range of motion. Neuro: Awake and alert, GCS 15, oriented to person, place, time, and situation. Cranial nerves II-XII grossly intact. Motor strength 5/5 in all extremities. Sensory grossly intact. Cerebellar exam normal. Normal gait. Vital Signs: 22:30 BP 100 / 64; Pulse 80; Resp 19; Temp 99.2; Pulse Ox 100% ; Weight 83.91 kg; Height 5 rr5 ft. 3 in. (160.02 cm); 23:30 BP 99 / 62; Pulse 85; Resp 17; Pulse Ox 99% on R/A; rr5 22:30 Body Mass Index 32.77 (83.91 kg, 160.02 cm) rr5 Zakia Coma Score: 22:30 Eye Response: spontaneous(4). Verbal Response: oriented(5). Motor Response: obeys rr5 commands(6). Total: 15. 22:30 Eye Response: spontaneous(4). Verbal Response: oriented(5). Motor Response: obeys rr5 commands(6). Total: 15. 23:30 Eye Response: spontaneous(4). Verbal Response: oriented(5). Motor Response: obeys rr5 commands(6). Total: 15. MDM: 22:34 Patient medically screened. kb 23:19 Data reviewed: vital signs, nurses notes. Data interpreted: Pulse oximetry: on room air kb is 100 %. Interpretation: normal. 23:22 Counseling: I had a detailed discussion with the patient and/or guardian regarding: the kb historical points, exam findings, and any diagnostic results supporting the discharge/admit diagnosis, lab results, the need for outpatient follow up, a family practitioner, to return to the emergency department if symptoms worsen or persist or if there are any questions or concerns that arise at home. 03/25 22:34 Order name: Urine Microscopic Only; Complete Time: 23:26 kb 03/25 22:34 Order name: Basic Metabolic Panel; Complete Time: 23:22 kb 03/25 22:50 Order name: Urine Dipstick--Ancillary (enter results); Complete Time: 23:11 mw2 03/25 22:50 Order name: Urine --Ancillary (enter results); Complete Time: 23:11 mw2 03/25 22:34 Order name: Urine Test (obtain specimen); Complete Time: 22:52 kb 03/25 22:34 Order name: Urine Dipstick-Ancillary (obtain specimen); Complete Time: 22:52 kb Administered Medications: 22:51 Drug: NS 0.9% 1000 ml Route: IV; Rate: 1000 ml; Site: right forearm; rr5 23:35 Follow up: Response: No adverse reaction; IV Status: Completed infusion; IV Intake: rr5 1000ml 23:27 Drug: Potassium Chloride 20 mEq Route: PO; rr5 23:51 Follow up: Response: Medication administered at discharge. rr5 Disposition: 03/26 04:39 Co-signature as Attending Physician, Karl Whittaker MD I agree with the assessment and tw4 plan of care. Disposition: 03/25/19 23:30 Discharged to Home. Impression: Epilepsy and recurrent seizures. - Condition is Stable. - Discharge Instructions: Seizure, Adult, [id number]. - Medication Reconciliation Form, Thank You Letter, Antibiotic Education, Prescription Opioid Use form. - Follow up: Emergency Department; When: As needed; Reason: Worsening of condition. Follow up: Private Physician; When: 2 - 3 days; Reason: Recheck today's complaints, Continuance of care, Re-evaluation by your physician. Signatures: Dispatcher [employer] EDMI Marianne Pham, NIGHT CUSTODIAN-C NIGHT CUSTODIAN-Ckb Karl Whittaker MD MD tw4 Dominick Nichols RN RN rr5 Corrections: (The following items were deleted from the chart) 03/25 23:51 23:30 03/25/2019 23:30 Discharged to Home. Impression: Epilepsy and recurrent seizures. rr5 Condition is Stable. Discharge Instructions: Seizure, Adult, [id number]. Forms are Medication Reconciliation Form, Thank You Letter, Antibiotic Education, Prescription Opioid Use. Follow up: Emergency Department; When: As needed; Reason: Worsening of condition. Follow up: Private Physician; When: 2 - 3 days; Reason: Recheck today's complaints, Continuance of care, Re-evaluation by your physician. kb
== END 2019-03-25 23:51 | disposition home or self-care (01) ==
LOC: ER 22:26
DX: O99.352 Diseases of the nervous system complicating pregnancy, second trimester (principal); G40.909 Epilepsy, unspecified, not intractable, without status epilepticus; O99.332 Smoking (tobacco) complicating pregnancy, second trimester; Z3A.22 22 weeks gestation of pregnancy; Z88.0 Allergy status to penicillin
CPT/HCPCS: 80048; 36415; 81025; 96360; 99284; J7030; 81003; 81015

== ENCOUNTER 2019-05-15 10:04 | Emergency (ER) | payer OTHER ==
[2019-05-15] MEDS ORDERED: NA CHLORIDE 0.9% 1,000 ML ONE (10:31)
[2019-05-15 10:52] LABS: Urine Bacteria 20-50 /HPF (<20); Urine Culture Reflex Order REFLEXED
[2019-05-15 10:55] LABS: Absolute Lymphocytes (CBC) 1.3 K/uL (0.7-4.9); Hematocrit 33.6 % (36.0-45.0); Lymphocytes % 9.9 % (15.3-44.8); MPV 9.9 fL (7.6-11.3); RBC Red Blood Cell Count 3.56 M/uL (3.86-4.86)
[2019-05-15 11:01] LABS: BUN Blood Urea Nitrogen 7 mg/dL (7-18); Bicarbonate 22 mmol/L (21-32); Glucose Level 104 mg/dL (74-106); Potassium 3.5 mmol/L (3.5-5.1); Sodium Level 140 mmol/L (136-145)
[2019-05-15 11:04] LABS: Urine Blood 2+ (NEG); Urine Glucose NEGATIVE (NEG); Urine Protein NEGATIVE (NEG); Urine Specific Gravity 1.015 (1.005-1.030); Urine pH 7.5 (5.0-7.0)
[2019-05-15 11:55] LABS: Blood Morphology Comment NOT SEEN (NOT SEEN); Platelet Estimate ADEQ
[2019-05-15] MEDS ORDERED: ACETAMINOPHEN 325 MG TABLET ONE (11:57)
--- NOTE | 2019-05-15 12:33 | ER ---
Nurse's Notes [facility] Name: Mikayla Torrez Age: 33 yrs Sex: Female : 1985 Arrival Date: 05/15/2019 Time: 10:08 Bed 4 Private MD: Diagnosis: Epilepsy and recurrent seizures;Urinary tract infection, site not specified Presentation: 05/15 10:27 Presenting complaint: EMS states: of patient witnessed a seizure lasting about ae4 10 seconds, Patient states she takes Keppra and took her medication today about 2 hours later than usual. Transition of care: patient was not received from another setting of care. Onset of symptoms was May 15, 2019. Care prior to arrival: IV initiated. in the right hand, 24 Gauge Glucose check: 106. 10:27 Acuity: MARY 3 ae4 10:27 Method Of Arrival: EMS: [facility] ae4 12:02 Risk Assessment: Do you want to hurt yourself or someone else? Patient reports no ae4 desire to harm self or others. Initial Sepsis Screen: Does the patient meet any 2 criteria? No. Patient's initial sepsis screen is negative. Does the patient have a suspected source of infection? No. Patient's initial sepsis screen is negative. 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 - Social history:: Smoking status: Patient uses tobacco products, smokes one-half pack cigarettes per day. - Family history:: not pertinent. - Ebola Screening: : Patient denies travel to an Ebola-affected area in the 21 days before illness onset. - Hospitalizations: : No recent hospitalization is reported. Screenin:03 Abuse screen: Denies threats or abuse. Nutritional screening: No deficits noted. ae4 Tuberculosis screening: No symptoms or risk factors identified. Fall Risk None identified. Fall in past 12 months (25 points). Secondary diagnosis (15 points) seizures, IV access (20 points). Ambulatory Aid- None/Bed Rest/Nurse Assist (0 pts). Gait- Normal/Bed Rest/Wheelchair (0 pts) Mental Status- Oriented to own ability (0 pts). Assessment: 10:35 General: Appears in no apparent distress. comfortable, unkempt, Behavior is calm, ae4 cooperative. Pain: Denies pain. Pain: Complains of pain in head and back of head. Neuro: Cardiovascular: Patient's skin is warm and dry. Respiratory: Airway is patent Respiratory effort is even, unlabored, Respiratory pattern is regular, symmetrical. GI: Patient currently denies diarrhea, nausea, pain. : No signs and/or symptoms were reported regarding the genitourinary system. Urine is clear, Denies burning with urination, vaginal bleeding. EENT: Wears glasses. Derm: Skin is normal. Musculoskeletal: No signs and/or symptoms reported regarding the musculoskeletal system. 10:37 Reassessment: Patient appears in no apparent distress at this time. ae4 11:16 Reassessment: Patient appears in no apparent distress at this time. Patient and/or ae4 family updated on plan of care and expected duration. Pain level reassessed. Patient denies pain at this time. Patient states feeling better. Neuro: Level of Consciousness is awake, alert, obeys commands, Oriented to person, place, time, situation, Appropriate for age. Respiratory: Airway is patent. Vital Signs: 10:25 BP 118 / 68; Pulse 82; Resp 19; Temp 98.4(O); Pulse Ox 97% ; Weight 81.65 kg (R); Pain ae4 0/10; 11:06 BP 102 / 56; Pulse 79; Resp 19; Pulse Ox 99% on R/A; ae4 12:00 BP 91 / 55; Pulse 81; Resp 20; Pulse Ox 98% on R/A; ae4 12:55 BP 102 / 61; Pulse 76; Resp 18; Pulse Ox 100% on R/A; ae4 Vitals: 10:35 Heart Tones 140 bpm. ae4 ED Course: 10:08 Patient arrived in ED. rn 10:09 Leon Hannon MD is Attending Physician. rn 10:24 José Manuel Sage, ANTONIETTA is Primary Nurse. ae4 10:29 Triage completed. ae4 10:30 Inserted saline lock: 20 gauge in right antecubital area, using aseptic technique. ae4 ,using aseptic technique. by [facility] Tech Blood collected. 10:35 Arm band placed on right wrist. ae4 10:35 Placed in gown. Bed in low position. Call light in reach. Side rails up X2. Seizure ae4 precautions initiated. 10:37 Warm blanket given. ae4 12:56 No provider procedures requiring assistance completed. IV discontinued, intact, ae4 bleeding controlled, No redness/swelling at site. Pressure dressing applied. Administered Medications: 10:34 Drug: NS 0.9% 1000 ml Route: IV; Rate: 1000 ml; Site: right antecubital; ae4 11:45 Follow up: IV Status: Completed infusion ae4 12:00 Drug: Tylenol 650 mg Route: PO; ae4 12:56 Follow up: Response: Pain is decreased ae4 Outcome: 12:33 Discharge ordered by . rn 12:56 Discharged to home ambulatory. ae4 12:56 Condition: stable 12:56 Discharge instructions given to patient, Instructed on discharge instructions, follow up and referral plans. Demonstrated understanding of instructions, Prescriptions given X 1. 12:56 Patient left the ED. ae4 Addendum: 05/18/2019 12:22 Addendum: Culture Results: Positive urine culture. No further action required. Bacteria s s sensitive to prescribed antibiotic. Signatures: Leon Hannon MD MD rn Smirch, Shelby, RN RN José Manuel Sage RN RN ae4
--- NOTE | 2019-05-15 12:33 | EDPHYS ---
Physician Documentation [facility] Name: Mikayla Torrez Age: 33 yrs Sex: Female : 1985 Arrival Date: 05/15/2019 Time: 10:08 Bed 4 Private MD: ED Physician Leon Hannon HPI: 05/15 10:18 This 33 yrs old Female presents to ER via Unassigned with complaints of rn seizure. 10:18 The patient presents after having a single isolated seizure, that lasted 7 second(s). rn Character of seizure(s): Motor activity: generalized, Incontinence: none, Apnea: the patient did not experience apnea, Circulation: the patient did not experience evidence of pulse disturbance. Seizure onset: just prior to arrival. Current symptoms: headache. The patient has experienced similar episodes in the past. Reports has known seizure disorder, had seizure RN SURGERY, lasted approx 7 seconds followed by 5 min post-ictal period, witnessed by . NO trauma. Is 29 weeks . Takes keppra. Took keppra late today and has had a cold recently. NO vaginal bleeding or leakage. No abd pain. Feels baby move. . [employer]: 12:02 6, LMP 0 ae4 Historical: - Allergies: 10:26 PENICILLINS; ae4 - Home Meds: 10:26 Depakote ER Oral [Active]; albutererol INH [Active]; Vitamin Oral tab 1 tab ae4 once daily [Active]; sepera [Active]; - PMHx: 10:26 Herniated disc; HYPOGLYCEMIA; Seizures; ae4 - Immunization history:: Flu vaccine is not up to date. - Social history:: Smoking status: Patient uses tobacco products, smokes one-half pack cigarettes per day. - Family history:: not pertinent. - Ebola Screening: : Patient denies travel to an Ebola-affected area in the 21 days before illness onset. - Hospitalizations: : No recent hospitalization is reported. ROS: 10:18 Constitutional: Negative for fever, chills, and weight loss, Eyes: Negative for injury, rn pain, redness, and discharge, ENT: + congestion and sore throat Neck: Negative for injury, pain, and swelling, Cardiovascular: Negative for chest pain, palpitations, and edema, Respiratory: Negative for shortness of breath, cough, wheezing, and pleuritic chest pain, Abdomen/GI: Negative for abdominal pain, nausea, vomiting, diarrhea, and constipation, MS/Extremity: Negative for injury and deformity, Skin: Negative for injury, rash, and discoloration, Neuro: Negative for weakness, numbness, tingling Exam: 10:18 Constitutional: This is a well developed, well nourished patient who is awake, alert, rn and in no acute distress. Head/Face: Normocephalic, atraumatic. Eyes: Pupils equal round and reactive to light, extra-ocular motions intact. Lids and lashes normal. Conjunctiva and sclera are non-icteric and not injected. Cornea within normal limits. Periorbital areas with no swelling, redness, or edema. ENT: MMM, no stridor Neck: Trachea midline, no thyromegaly or masses palpated, and no cervical lymphadenopathy. Supple, full range of motion without nuchal rigidity, or vertebral point tenderness. No Meningismus. Cardiovascular: Regular rate and rhythm. No pulse deficits. Respiratory: No increased work of breathing, no retractions or nasal flaring. Abdomen/GI: soft, non-tender, + gravid uterus. MS/ Extremity: Pulses equal, no cyanosis. Neurovascular intact. Full, normal range of motion. Equal circumference. Neuro: Awake and alert, GCS 15, oriented to person, place, time, and situation. Cranial nerves II-XII grossly intact. Motor strength 5/5 in all extremities. Sensory grossly intact. Cerebellar exam normal. Vital Signs: 10:25 BP 118 / 68; Pulse 82; Resp 19; Temp 98.4(O); Pulse Ox 97% ; Weight 81.65 kg (R); Pain ae4 0/10; 11:06 BP 102 / 56; Pulse 79; Resp 19; Pulse Ox 99% on R/A; ae4 12:00 BP 91 / 55; Pulse 81; Resp 20; Pulse Ox 98% on R/A; ae4 12:55 BP 102 / 61; Pulse 76; Resp 18; Pulse Ox 100% on R/A; ae4 MDM: 10:09 Patient medically screened. rn 12:31 Differential diagnosis: seizure, dehydration, UTI. Data reviewed: vital signs, nurses rn notes, lab test result(s), EKG, and as a result, I will discharge patient. Counseling: I had a detailed discussion with the patient and/or guardian regarding: the historical points, exam findings, and any diagnostic results supporting the discharge/admit diagnosis, lab results, radiology results, the need for outpatient follow up, to return to the emergency department if symptoms worsen or persist or if there are any questions or concerns that arise at home. Response to treatment: the patient's condition has returned to base line, and as a result, I will discharge patient. Special discussion: I discussed with the patient/guardian in detail that at this point there is no indication for admission to the hospital. It is understood, however, that if the symptoms persist or worsen the patient needs to return immediately for re-evaluation. Based on the history and exam findings, there is no indication for further emergent testing or inpatient evaluation. I discussed with the patient/guardian the need to see the primary care provider for further evaluation of the symptoms. ED course: Pt with seizure identical to previous seizures, takes medication, BP not high to blame eclampsia, no related problems. Will prescribe macrobid for bacteriuria, and will dc home.. 05/15 10:10 Order name: CBC with Diff; Complete Time: 12:30 05/15 10:10 Order name: Basic Metabolic Panel; Complete Time: 12:30 05/15 10:10 Order name: Urine Microscopic Only; Complete Time: 10:56 05/15 10:10 Order name: Strep; Complete Time: 12:30 rn 05/15 10:10 Order name: Flu; Complete Time: 12:30 05/15 10:25 Order name: Urine Dipstick--Ancillary (enter results) 05/15 10:10 Order name: IV Start; Complete Time: 10:34 rn 05/15 10:10 Order name: EKG; Complete Time: 10:10 05/15 10:25 Order name: Urine --Ancillary (enter results) 05/15 10:54 Order name: Urine Culture [facility] 05/15 11:03 Order name: Throat Culture [facility] 05/15 11:55 Order name: Manual Differential; Complete Time: 12:30 [facility] 05/15 10:10 Order name: Urine Dipstick-Ancillary (obtain specimen); Complete Time: 10:24 05/15 10:10 Order name: EKG - Nurse/Tech; Complete Time: 10:58 rn 05/15 10:10 Order name: FHT's; Complete Time: 10:24 rn Administered Medications: 10:34 Drug: NS 0.9% 1000 ml Route: IV; Rate: 1000 ml; Site: right antecubital; ae4 11:45 Follow up: IV Status: Completed infusion ae4 12:00 Drug: Tylenol 650 mg Route: PO; ae4 12:56 Follow up: Response: Pain is decreased ae4 Disposition: 05/15/19 12:33 Discharged to Home. Impression: Epilepsy and recurrent seizures, Urinary tract infection, site not specified. - Condition is Stable. - Discharge Instructions: Seizure, Adult, Urinary Tract Infection, Adult. - Prescriptions for Macrobid 100 mg Oral Capsule - take 1 capsule by ORAL route every 12 hours for 7 days; 14 capsule. - Medication Reconciliation Form, Thank You Letter, Antibiotic Education, Prescription Opioid Use form. - Follow up: Private Physician; When: As needed; Reason: Recheck today's complaints, Re-evaluation by your physician. - Problem is new. - Symptoms have improved. Signatures: Dispatcher [employer] EDMS Leon Hannon MD MD rn Elliott, Andrea, RN RN ae4 Corrections: (The following items were deleted from the chart) 12:56 12:33 05/15/2019 12:33 Discharged to Home. Impression: Epilepsy and recurrent seizures; ae4 Urinary tract infection, site not specified. Condition is Stable. Forms are Medication Reconciliation Form, Thank You Letter, Antibiotic Education, Prescription Opioid Use. Follow up: Private Physician; When: As needed; Reason: Recheck today's complaints, Re-evaluation by your physician. Problem is new. Symptoms have improved. rn
[2019-05-15 13:15] VITALS: TEMP 98.4
[2019-05-15 13:18] VITALS: BP 102/61; O2SAT 100
--- NOTE | 2019-05-16 09:50 | EKG ---
Test Date: 2019-05-15 Test Time: 10:44:09 Pocket Cutter: ALEJA MEASUREMENT RESULTS: Intervals: Rate: 76 WY: 168 QRSD: 90 QT: 378 QTc: 425 Larsen: P: 41 WY: 168 QRS: 57 T: 14 INTERPRETIVE STATEMENTS: Normal sinus rhythm normal ECG Compared to ECG 03/09/2019 19:48:37 no significant change from previous ECG Electronically Signed On 05-16-19 09:49:10 CDT by Michael Ng
== END 2019-05-15 12:56 | disposition home or self-care (01) ==
LOC: ER 10:04
DX: G40.909 Epilepsy, unspecified, not intractable, without status epilepticus (principal); N39.0 Urinary tract infection, site not specified; Z88.0 Allergy status to penicillin
CPT/HCPCS: 93005; 87070; 87088; 85025; 87086; 80048; 36415; 81025; 87081; 87077; 87186; 87804 ×2; 96360; 99284; J7030; 81003; 81015